=== PATIENT | female | born 1960 | race Caucasian/White ===

== ENCOUNTER 2024-06-26 14:28 | Inpatient (IN) | payer BC, SELFPAY ==
[2024-06-26] VITALS (9 sets, daily range): BP systolic 83–133; BP diastolic 54–78; PULSE 98–126; RESP 19–29; TEMP 35.6–37.2; O2SAT 87–98; BMI 24.7
--- NOTE | 2024-06-26 15:11 | XR_ITS ---
Examination: CT brain head without contrast. 2-D sagittal coronal reconstructions Date and time of exam:June 26, 2024 1701 hours INDICATIONS: Onset slurred speech generalized body weakness today CTDI: vol (mGy):45.8 DLP: (mGycm):960 Technique: Multiple CT axial sections of the brain have been obtained, 5 mm slice thickness. Contrast has not been administered. 2-D sagittal, coronal reconstructions have been obtained Low dose protocols were performed. One or more of the following dose reduction techniques were used; automated exposure control, adjustment of the mA and/or KV according to patient size, use of iterative reconstruction technique. Findings: No significant ventricular enlargement. Axial image 35 demonstrates 33 x 38 mm subtle low density area in the left cerebellar hemisphere Intra-axial or extra-axial hemorrhage density is not seen. No mass effect or midline shift Basal cisterns are not remarkable. Fourth ventricle is midline. Cranial vault intact. 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
--- NOTE | 2024-06-26 15:46 | EKG_ITS ---
[facility], [place] Test Date: 2024-06-26 Pat Name: ARGELIA RATLIFF Department: Room: - Gender: Female Clarifier: : [id number] Requested By: Oneal Kim Order Number: [id number] Reading MD: Oneal Kim Measurements Intervals [place] Rate: 116 P: 1 W[place]: 245 QRS: 30 QRSD: 160 T: 32 QT: 362 QTc: 504 Interpretive Statements ELECTRONIC VENTRICULAR PACEMAKER ABNORMAL RHYTHM ECG Compared to ECG 12/12/2021 12:19:58 Sinus rhythm no longer present Left-axis deviation no longer present Left bundle-branch block no longer present /store/[id number]
--- NOTE | 2024-06-26 15:47 | XR_ITS ---
Examination: AP chest single view TECHNIQUE: AP portable upright chest single view Exam date and time: June 26, 2024 1611 hours INDICATIONS: Sepsis protocol. FINDINGS: Early pneumonia left base Mild prominence left ventricle Cardiac leads satisfactory position Mild to moderate vascular congestion Right axillary surgical clips IMPRESSION: Early pneumonia left base
[2024-06-26 15:59] LABS: INR 1.7 (0.9-1.3); Partial Thromboplastin Time 35.5 Seconds (22.0-36.0); Prothrombin Time 17.6 Seconds (9.0-12.2)
--- NOTE | 2024-06-26 16:02 | PD.EDADULT ---
ED General RME/HPI General Chief complaint: Weakness Stated complaint: WEAKNESS, FLU LIKE SYMPTOMS Time Seen by Provider: 06/26/24 14:54 Arrival date/time: 06/26/24 14:28 RME / HPI RME / HPI narrative: Chief complaint: Slurred speech, N/V and diffuse bodyaches HPI: Patient is a 64-year-old female with past medical history of alcohol use disorder x 40 years, breast cancer s/p chemoradiation in 2003, HFrEF 20% s/p P[employer] in 2021, primary hypertension, recurrent ground-level falls due to loss of balance/peripheral neuropathy, and hypothyroidism, who was brought in by ambulance to the ER. Patient is a poor historian. Per present at bedside, patient symptoms started 4 days ago, when she started vomiting abruptly, he denies any blood or mucus in the vomitus, describes it as partially chewed yellowish discharge mainly food and liquids. Since Sunday patient has been unable to tolerate any diet, and has had multiple episodes of vomiting, and rest she is not complaining of nausea. Has been denies any subjective fevers at home or chills, however states that patient is a frequent drinker and often passes out and has ground-level falls after drinking. Patient has been consuming alcohol for over 40 years, mainly rum, she has had a colonoscopy in the past, but never had upper GI workup. She denies any blood or mucus in the stools or vomit. Patient has only been able to partially consume liquids over the last 72 hours. As per her she also started experiencing slurred speech 24 hours ago, and is now having difficulty finding words expressing what she wants to say. She has never had the symptoms in the past, has no history of stroke, and did not have any hospitalization since 2021 since a P[employer] INSTRUCTOR-D placement. Patient last drink was on Sunday, she has been trying to quit, however has been gave 2 shots of rum because the was worried she was going through withdrawal. However that did not help with the nausea or vomiting or the bodyaches. Medication list: -Escitalopram -Alprazolam -Lamotrigine -Entresto -Metoprolol XL -Levothyroxine -Daily vitamins Past surgical history: Breast cancer - chemoradiation, ?Lumpectomy in 2003 HFrEF - [employer] IN[employer]CTOR-D placement in 2021 Allergies: Sulfa drugs?angioedema Erythromycin?hives Social history: Marital?Status:? Tobacco?Use:?Denies ETOH?Use:?Chronic alcohol use x 40 years, active user, last drink was on Sunday 2 shots of from Drug?Note:?Denies Social?History?Note:?Lives?at home with? and mother Family history: Denies any cancers, sudden cardiac deaths or strokes in family. Related Data Home Medications ?Medication ?Instructions ?Recorded ?Confirmed Bupropion Hcl (Bupropion Hcl Xl) 300 mg PO QDAY ##90 10/14/16 12/13/21 alprazolam 0.5 mg tablet 1 mg PO QDAY PRN ANXIETY ##135 10/14/16 12/13/21 cholecalciferol (vitamin D3) 50 4,000 unit PO QDAY #0 caps 10/14/16 12/13/21 mcg (2,000 unit) capsule (Vitamin D3) lamotrigine 100 mg tablet 100 mg PO BID ##180 10/14/16 12/13/21 levothyroxine 50 mcg tablet 50 mcg PO QDAY ##90 10/14/16 12/13/21 (Synthroid) metoprolol succinate 100 mg 100 mg PO QDAY 10/19/21 12/13/21 capsule sprinkle, ext. release 24 hr multivitamin 1 tab PO DAILY 10/19/21 12/13/21 sacubitril 24 mg-valsartan 26 mg 1 tab PO BID 10/19/21 12/13/21 tablet (Entresto) Previous Rx's ?Medication ?Instructions ?Recorded Acetaminophen ER * (TYLENOL ER *) 650 mg PO Q8HR PRN PAIN ##30 01/13/17 Allergies Allergy/AdvReac Type Severity Reaction Status Date / Time Sulfa (Sulfonamide Allergy Severe THROAT Verified 12/13/21 12:29 Antibiotics) SWELLS,ANAPHYLAXIS erythromycin base Allergy Mild rash Verified 12/13/21 12:29 Review of Systems Review of Systems Narrative Review of Systems: GENERAL: Denies fevers/chills or diaphoresis. Generalized body aches HEENT: Denies headache or visual/hearing changes. Denies nasal discharge. NEURO: unusual weakness, slurred speech CARDIO: Denies chest pain or palpitations. PULM: Denies SOB, coughing, or wheezing. GI: Denies abdominal pain, N/V x multiple episodes, denies C/D. Reports having BMs URO: mild burning/itching/hesitancy in passing urine ACRYLIC FABRICATOR: Denies menstrual changes, hot flashes. MSK/EXT/SKIN: Denies joint/skeletal/muscle pain, issues/changes in upper or lower extremities, itchiness, or superficial pain. PSYCH: Cooperative, pleasant mood & affect. The rest of the review of systems is otherwise negative. ED Exam Narrative Physical exam: Constitutional Alert, oriented x2 . Notable scleral icterus HEENT Vision grossly intact. Patent nares. Trachea midline. On 5L oxygen via NC Respiratory Chest normal on inspection and diffuse soft crackles on auscultation. Cardiovascular S1 and S2 audible, RRR. No murmurs or carotid bruit. No gross JVD. Abdominal Soft and non tender to palpation in all quadrants. BS + Genitourinary No bladder tenderness, no flank pain. Normal to palpation. Musculoskeletal Extremities tone within normal limits. No LE edema. Neurological CN II - XII grossly intact. Extremity motor and sensation grossly intact. Skin Warm, dry and intact. Jaundice Psychiatric Patient has a good affect, cooperative. Course Course Course Narrative: Ordered Head CT, CT abdomen/pelvis and CT Chest Quality Measures none Orders Category Date Time Status Bedside Blood Glucose NOW Care 06/26/24 15:47 Completed Bedside COVID-19 Antigen Test NOW Care 06/26/24 21:[address] Screening NOW Care 06/26/24 15:55 Completed EKG (ED ONLY) *Do not use* NOW Care 06/26/24 15:48 Completed NPO NOW Care 06/26/24 17:32 Completed Consult to Gastroenterology Stat Cons 06/26/24 17:31 Ordered Diet NPO Except Supplements Diet 06/26/24 17:32 Completed CA echo doppler complete Stat Exams 06/26/24 21:[address] abdomen pelvis wo con Stat Exams 06/26/24 16:[address] chest wo con Stat Exams 06/26/24 16:[address] head/brain wo con Stat Exams 06/26/24 15:11 Completed EKG (ED Only) Stat Exams 06/26/24 15:46 Draft US abdomen Stat Exams 06/26/24 20:43 Completed XR chest 1V SEPSIS PROTOCOL Stat Exams 06/26/24 15:47 Completed AXEL IFA Screen w/refl, IFA* Stat Lab 06/26/24 23:27 Received Acetaminophen Stat Lab 06/26/24 21:16 Completed [id number]* Stat Lab 06/26/24 23:27 Received Ammonia Stat Lab 06/26/24 18:42 Completed Bilirubin,Direct Routine Lab 06/26/24 23:27 Completed Blood Culture (Lab) Stat Lab 06/26/24 15:50 Results CBC Stat Lab 06/26/24 16:00 Completed CMP [Comprehensive Metabolic Panel] Stat Lab 06/26/24 15:24 Completed Ceruloplasmin* Stat Lab 06/26/24 23:27 Received Ferritin Stat Lab 06/26/24 21:16 Completed HIV (1&2) Antibody Rapid Stat Lab 06/26/24 21:16 Completed Hepatitis A Antibody IgM Stat Lab 06/26/24 21:16 Completed Hepatitis A Antibody, Total* Stat Lab 06/26/24 23:27 Received Hepatitis Acute Panel Stat Lab 06/26/24 21:16 Completed Hepatitis B Core Antibody IgM Stat Lab 06/26/24 21:16 Completed Hepatitis B Surface Ab Stat Lab 06/26/24 21:16 Completed Hepatitis B Surface Antigen Stat Lab 06/26/24 21:16 Completed Hepatitis C Antibody Stat Lab 06/26/24 21:16 Completed Iron Panel Stat Lab 06/26/24 21:16 Completed LDH (Lactate Dehydrogenase) Routine Lab 06/26/24 23:27 Completed Lactate (Lactic Acid) Stat Lab 06/26/24 16:00 Completed Lactic Acid, 3 HR Stat Lab 06/26/24 19:40 Completed Lipase Stat Lab 06/26/24 16:00 Completed Magnesium Stat Lab 06/26/24 16:00 Completed PTT [Partial Thromboplastin Time] Stat Lab 06/26/24 15:24 [address] Path Review Blood Smear Stat Lab 06/26/24 16:00 Completed Procalcitonin Stat Lab 06/26/24 16:00 Completed Prothrombin Time with INR Stat Lab 06/26/24 15:24 Completed Renal Function Panel Stat Lab 06/26/24 18:42 Completed Sm Antibody* Stat Lab 06/26/24 23:27 Received Sodium Q4H Lab 06/26/24 23:27 Completed Sodium Q4H Lab 06/27/24 15:00 Ordered Thyroid Stimulating Hormone Stat Lab 06/26/24 16:00 Completed Troponin I Stat Lab 06/26/24 18:42 Completed Folic Acid Inj Med 06/26/24 16:50 Discontinued 1 mg IVP X1 ONE KCL 10% Liq UDC 15 ML Med 06/26/24 16:47 Discontinued 40 meq PO X1 ONE Lactulose Syrup [Enulose Syrup] Med 06/26/24 22:00 Discontinued 20 gm PO TID Magnesium Sulfate 1 gm Ivpb [Magnesium Sulfate Ivpb] Med 06/26/24 19:19 Discontinued 1 gm in 100 ml IV X1 MethylPREDNISolone. [SoluMEDROL Inj] Med 06/26/24 21:30 Discontinued 40 mg IVP Q12HR Ondansetron Inj [Zofran Inj] Med 06/26/24 16:47 Discontinued 4 mg IV X1 ONE Pharmacy Renal Dose Adjustment Med 06/26/24 21:14 Discontinued 1 each XX PRN PRN Piper/Tazo 3.375 gm [Zosyn] 50 ml Med 06/27/24 09:00 Discontinued IV Q12HR Piper/Tazo Inj [Zosyn Inj] 4.5 gm Med 06/26/24 21:45 Discontinued Sodium Chloride 0.9% [Ns] 100 ml IV X1 Sodium Chloride 0.9% 1000 ml [Ns] 1,000 ml Med 06/26/24 16:10 Discontinued IV 999 mls/hr Sodium Chloride 0.9% 1000 ml [Ns] 1,000 ml Med 06/26/24 18:00 Discontinued IV 999 mls/hr Sodium Chloride 0.9% 500 ml [Ns] 500 ml Med 06/26/24 16:33 Discontinued IV 999 mls/hr Thiamine Inj [Vitamin B-1 Inj] 250 mg Med 06/26/24 16:51 Discontinued Sodium Chloride 0.9% [Ns] 100 ml IV X1 Vital Signs Vital signs: Vital Signs Temperature 98.9 F 06/26/24 16:28 Pulse Rate 98 06/26/24 16:28 Respiratory Rate 19 06/26/24 16:28 Blood Pressure 133/78 H 06/26/24 16:28 Pulse Oximetry (%) 98 06/26/24 16:28 [facility] Patient data External records reviewed:: [facility] previous records Clinical information provided by:: patient and spouse Social determinants that could affect healthcare access:: alcohol use Patient has the following chronic illnesses:: alcohol use disorder x 40 years, breast cancer s/p chemoradiation in 2003, HFrEF 20% s/p P[employer] IN[employer]-D in 2021, primary hypertension, recurrent ground-level falls due to loss of balance/peripheral neuropathy, and hypothyroidism How is presenting disease/condition affected by chronic disease/condition?: exacerbated by Evaluation data The following diagnostics were reviewed and interpreted by me:: lab results, radiology exam(s) and EKG tracing(s) Lab and/or radiology exams considered but not ordered:: MRI Interpretation Summary: SWATI, heaptic encephalopathy, hepatorenal syndrome, ARF and AGMA in the setting of chronic alcohol use disorder Medications Medications considered but not ordered:: Dilaudid Medication administrations:: Medication Administration History Discontinued Medications Acetaminophen (Acetaminophen 325 Mg Tablet) 650 mg PO Q6H PRN PRN Reason: Fever >101.5 Stop: 07/27/24 03:53 Albuterol/Ipratropium (Albuterol/Ipratropium (Duoneb) Rt Denisa 3 Ml Nebu) 3 ml INH Q6HRRT PRN PRN Reason: sob or wheeze Stop: 07/27/24 00:59 Artificial Tears (Artificial Tears 225 Drop/15 Ml Btl) 1 drop BOTH EYES Q4HR PRN PRN Reason: Dry eyes Stop: 07/27/24 03:55 Dextrose (Dextrose 50%-Water Inj 50 Ml Syringe) Confirm Administered Dose 50 ml IV .STK-MED ONE Stop: 06/27/24 02:39 Last Admin: 06/27/24 03:54 Dose: Not Given Documented By: RANDA Non-Admin Reason: Duplicate Medication on eMAR Dextrose (Dextrose 50%-Water Inj 50 Ml Syringe) 50 ml IV X1 ONE Stop: 06/27/24 02:39 Last Admin: 06/27/24 02:38 Dose: 50 ml Documented By: RANDA Etomidate (Etomidate Inj 2 Mg/Ml Vial 10 Ml) Confirm Administered Dose 20 mg .ROUTE .STK-MED ONE Stop: 06/27/24 00:24 Last Admin: 06/27/24 01:42 Dose: Not Given Documented By: NOAH Non-Admin Reason: Override Medication Etomidate (Etomidate Inj 2 Mg/Ml Vial 10 Ml) 20 mg IVP X1 ONE Stop: 06/27/24 00:34 Last Admin: 06/27/24 01:39 Dose: Not Given Documented By: SF Non-Admin Reason: Cancelled by Provider Folic Acid (Folic Acid Inj 1 Mg/0.2 Ml) 1 mg IVP X1 ONE Stop: 06/26/24 16:51 Last Admin: 06/26/24 18:00 Dose: 1 mg Documented By: JARON Sodium Chloride (Ns) 1,000 mls @ 999 mls/hr IV .Q1H1M ONE Stop: 06/26/24 17:10 Last Infusion: 06/26/24 18:08 Dose: Infused Documented By: Admin: 06/26/24 16:37 Dose: 999 mls/hr Documented By: JARON Sodium Chloride (Ns) 500 mls @ 999 mls/hr IV .Q31M ONE Stop: 06/26/24 17:03 Last Infusion: 06/26/24 18:08 Dose: Infused Documented By: Admin: 06/26/24 16:37 Dose: 999 mls/hr Documented By: JARON Thiamine HCl 250 mg/ Sodium (Chloride) 102.5 mls @ 205 mls/hr IV X1 ONE Stop: 06/26/24 17:20 Last Infusion: 06/26/24 18:43 Dose: Infused Documented By: Admin: 06/26/24 18:00 Dose: 205 mls/hr Documented By: JARON Sodium Chloride (Ns) 1,000 mls @ 999 mls/hr IV .Q1H1M ONE Stop: 06/26/24 19:00 Last Infusion: 06/26/24 21:57 Dose: Infused Documented By: Admin: 06/26/24 18:01 Dose: 999 mls/hr Documented By: JARON Magnesium Sulfate/Dextrose (Magnesium Sulfate Ivpb) 1 gm in 100 mls @ 100 mls/hr IV X1 ONE Stop: 06/26/24 20:18 Last Infusion: 06/26/24 21:56 Dose: Infused Documented By: Admin: 06/26/24 19:41 Dose: 100 mls/hr Documented By: NOAH Piperacillin/Tazobactam/Dextrose (Zosyn) 50 mls @ 12.5 mls/hr IV Q12HR EMMA Stop: 07/04/24 08:59 Piperacillin Sod/Tazobactam (Sod 4.5 gm/ Sodium Chloride) 100 mls @ 200 mls/hr IV X1 ONE Stop: 06/26/24 22:14 Last Infusion: 06/26/24 23:44 Dose: Infused Documented By: Admin: 06/26/24 22:12 Dose: 200 mls/hr Documented By: PRATEEK Octreotide Acetate 1,000 mcg/ (Sodium Chloride) 102 mls @ 5.1 mls/hr IV .Q20H EMMA; Protocol Stop: 07/02/24 20:44 Albumin Human (Albuminar-25 Ivpb) 25 gm in 100 mls @ 100 mls/hr IV QDAY EMMA Stop: 06/30/24 00:14 Last Admin: 06/27/24 00:30 Dose: 100 mls/hr Documented By: NOAH Albumin Human (Albuminar-25 Ivpb) Confirm Administered Dose 25 gm in 100 mls @ ud IV .STK-MED ONE Stop: 06/27/24 00:25 Last Admin: 06/27/24 01:41 Dose: Not Given Documented By: NOAH Non-Admin Reason: Override Medication Octreotide Acetate 1,000 mcg/ (Sodium Chloride) 102 mls @ 5.1 mls/hr IV .Q20H EMMA; Protocol Stop: 06/27/24 20:44 Last Admin: 06/27/24 04:04 Dose: Not Given Documented By: NORBERT Non-Admin Reason: Discontinued Epinephrine/Sodium Chloride (Adrenalin/Ns 4 Mg Ivpb) Confirm Administered Dose 4 mg in 250 mls @ ud IV .STK-MED ONE Stop: 06/27/24 00:47 Last Admin: 06/27/24 01:41 Dose: Not Given Documented By: SF Non-Admin Reason: Override Medication Sodium Chloride (Ns) 1,000 mls @ 999 mls/hr IV .Q1H1M ONE Stop: 06/27/24 02:04 Last Admin: 06/27/24 01:41 Dose: 999 mls/hr Documented By: NOAH Epinephrine/Sodium Chloride (Adrenalin/Ns 4 Mg Ivpb) 4 mg in 250 mls @ 15 mls/hr IV .[id number] PRN; Protocol PRN Reason: per protocol Stop: 07/27/24 01:41 Last Titration: 06/27/24 04:00 Dose: Infused Documented By: Titration: 06/27/24 03:25 Dose: 0.06 mcg/kg/min, 18 mls/hr Documented By: Titration: 06/27/24 03:20 Dose: 0.08 mcg/kg/min, 24 mls/hr Documented By: Titration: 06/27/24 03:14 Dose: 0.1 mcg/kg/min, 30 mls/hr Documented By: Titration: 06/27/24 03:00 Dose: 0.12 mcg/kg/min, 36 mls/hr Documented By: Titration: 06/27/24 02:38 Dose: 0.12 mcg/kg/min, 36 mls/hr Documented By: Titration: 06/27/24 02:00 Dose: 0.1 mcg/kg/min, 30 mls/hr Documented By: Titration: 06/27/24 01:25 Dose: 0.1 mcg/kg/min, 30 mls/hr Documented By: Titration: 06/27/24 01:00 Dose: 0.05 mcg/kg/min, 15 mls/hr Documented By: Admin: 06/27/24 00:53 Dose: 0.05 mcg/kg/min, 15 mls/hr Documented By: CMN Propofol (Diprivan Ivpb) 1,000 mg in 100 mls @ 2.4 mls/hr IV .Q24H PRN; Protocol PRN Reason: PER PROTOCOL Stop: 07/27/24 02:54 Fentanyl Citrate (Sublimaze Inj 2,500 Mcg/250 Ml Bag) 2,500 mcg in 250 mls @ 2.5 mls/hr IV .Q24H PRN; Protocol PRN Reason: PER PROTOCOL Stop: 07/02/24 02:54 Norepinephrine/Dextrose (Levophed In D5w 8mg/250ml) 8 mg in 250 mls @ 7.5 mls/hr IV .Q24H PRN; Protocol PRN Reason: PER PROTOCOL Stop: 07/27/24 03:07 Last Titration: 06/27/24 04:00 Dose: 0 mcg/kg/min, 0 mls/hr Documented By: Titration: 06/27/24 03:50 Dose: 1 mcg/kg/min, 150 mls/hr Documented By: Titration: 06/27/24 03:45 Dose: 0.5 mcg/kg/min, 75 mls/hr Documented By: Titration: 06/27/24 03:40 Dose: 0.1 mcg/kg/min, 15 mls/hr Documented By: Titration: 06/27/24 03:35 Dose: 0.07 mcg/kg/min, 10.5 mls/hr Documented By: Admin: 06/27/24 03:30 Dose: 0.05 mcg/kg/min, 7.5 mls/hr Documented By: RANDA Norepinephrine/Dextrose (Levophed In D5w 8mg/250ml) Confirm Administered Dose 8 mg in 250 mls @ ud IV .STK-MED ONE Stop: 06/27/24 03:04 Last Admin: 06/27/24 03:17 Dose: Not Given Documented By: CMN Non-Admin Reason: Duplicate Medication on eMAR Sodium Bicarbonate 88.23 meq/ (Dextrose) 588.23 mls @ 100 mls/hr IV .Q5H53M [facility] Stop: 07/27/24 03:20 Last Admin: 06/27/24 04:06 Dose: Not Given Documented By: AD Non-Admin Reason: Discontinued Amiodarone HCl 300 mg/ (Dextrose) 106 mls @ 600 mls/hr IV X1 ONE Stop: 06/27/24 03:42 Last Admin: 06/27/24 04:10 Dose: Not Given Documented By: CMN Non-Admin Reason: Discontinued Magnesium Sulfate (Magnesium Sulfate Ivpb) Confirm Administered Dose 50 mls @ ud IV .STK-MED ONE Stop: 06/27/24 03:27 Last Admin: 06/27/24 04:01 Dose: Not Given Documented By: CMN Non-Admin Reason: Duplicate Medication on eMAR Amiodarone HCl/Dextrose (Nexterone Ivpb) Confirm Administered Dose 150 mg in 100 mls @ ud IV .STK-MED ONE Stop: 06/27/24 03:27 Last Admin: 06/27/24 04:01 Dose: Not Given Documented By: CMN Non-Admin Reason: Duplicate Medication on eMAR Magnesium Sulfate (Magnesium Sulfate Ivpb) 2 gm in 50 mls @ 25 mls/hr IV X1 ONE Stop: 06/27/24 05:34 Last Admin: 06/27/24 03:30 Dose: 25 mls/hr Documented By: RANDA Vancomycin/Sodium Chloride (Vancomycin/Ns 1 Gm Ivpb) 200 mls @ 120 mls/hr IV Q100M [facility] Stop: 06/27/24 07:04 Last Admin: 06/27/24 04:07 Dose: Not Given Documented By: NORBERT Non-Admin Reason: Discontinued Amiodarone HCl/Dextrose (Nexterone Ivpb) 150 mg in 100 mls @ 600 mls/hr IV .Q10M ONE Stop: 06/27/24 03:19 Last Admin: 06/27/24 03:30 Dose: 600 mls/hr Documented By: RANDA Lactulose (Lactulose Syrup 20 Gm/30 Ml Udc) 20 gm PO TID EMMA; Protocol Stop: 07/26/24 21:59 Last Admin: 06/26/24 22:16 Dose: 20 gm Documented By: PRATEEK Methylprednisolone Sodium Succinate (Methylprednisolone Sod Succ 40 Mg Vial) 40 mg IVP Q12HR EMMA Stop: 07/03/24 21:29 Last Admin: 06/26/24 22:12 Dose: 40 mg Documented By: PRATEEK Morphine Sulfate (Morphine Sulf Inj 10 Mg/Ml Vial) 4 mg IVP X1 ONE Stop: 06/27/24 03:55 Last Admin: 06/27/24 03:58 Dose: 4 mg Documented By: RANDA Morphine Sulfate (Morphine Sulf Inj 10 Mg/Ml Vial) Confirm Administered Dose 10 mg .ROUTE .STK-MED ONE Stop: 06/27/24 03:48 Last Admin: 06/27/24 04:04 Dose: Not Given Documented By: NORBERT Non-Admin Reason: Duplicate Medication on eMAR Octreotide Acetate (Octreotide Acet Inj 50 Mcg/Ml Vial) 50 mcg IV X1 ONE Stop: 06/27/24 00:15 Last Admin: 06/27/24 04:05 Dose: Not Given Documented By: NORBERT Non-Admin Reason: Not In Room Ondansetron HCl (Ondansetron Inj 2 Mg/Ml Inj 2 Ml) 4 mg IV X1 ONE; Protocol Stop: 06/26/24 16:48 Last Admin: 06/26/24 18:01 Dose: 4 mg Documented By: JARON Ondansetron HCl (Ondansetron Inj 2 Mg/Ml Inj 2 Ml) 4 mg IV Q6H PRN; Protocol PRN Reason: NAUSEA OR VOMITING Stop: 07/26/24 22:30 Pantoprazole Sodium (Pantoprazole Inj 40 Mg Vial) 80 mg IV X1 ONE Stop: 06/27/24 00:10 Last Admin: 06/27/24 04:05 Dose: Not Given Documented By: AD Non-Admin Reason: Not In Room Pharmacy Consult (Pharmacy Renal Dose Adjustment 1 Ea) 1 each XX PRN PRN PRN Reason: CONSULT Stop: 07/26/24 21:13 Pharmacy Consult (Pharmacy Renal Dose Adjustment 1 Ea) 1 each XX QDAY EMMA Stop: 07/27/24 08:59 Pharmacy Consult (Vancomycin Pharmacy To Dose 1 Each Each) 1 each IV QDAY EMMA Stop: 07/27/24 03:39 Last Admin: 06/27/24 04:07 Dose: Not Given Documented By: NORBERT Non-Admin Reason: Discontinued Potassium Chloride (Potassium Chloride 10% 20 Meq/15 Ml Udc) 40 meq PO X1 ONE Stop: 06/26/24 16:48 Last Admin: 06/26/24 18:01 Dose: 40 meq Documented By: JARON Rocuronium [place] (Rocuronium Inj 10 Mg/Ml Vial 10 Ml) Confirm Administered Dose 100 mg .ROUTE .STK-MED ONE Stop: 06/27/24 00:24 Last Admin: 06/27/24 01:41 Dose: Not Given Documented By: NOAH Non-Admin Reason: Override Medication Rocuronium [place] (Rocuronium Inj 10 Mg/Ml Vial 10 Ml) 80 mg IVP X1 ONE Stop: 06/27/24 00:33 Last Admin: 06/27/24 00:41 Dose: 80 mg Documented By: NOAH Co-signed By: PRATEEK Scopolamine (Scopolamine 1 Mg Tdsy) 1 mg TOP Q3D [facility] Stop: 07/27/24 03:59 Last Admin: 06/27/24 04:43 Dose: Not Given Documented By: RANDA Non-Admin Reason: Change of Condition Sodium Bicarbonate (Sodium Bicarb Inj 8.4% Syr 50 Ml Syringe) 50 ml IV X1 ONE Stop: 06/27/24 03:21 Last Admin: 06/27/24 03:24 Dose: 50 ml Documented By: RANDA Sodium Bicarbonate (Sodium Bicarb Inj 8.4% Syr 50 Ml Syringe) 50 ml IV X1 ONE Stop: 06/27/24 03:22 Last Admin: 06/27/24 03:24 Dose: 50 ml Documented By: RANDA Sodium Bicarbonate (Sodium Bicarb Inj 8.4% Syr 50 Ml Syringe) 50 ml IV X1 ONE Stop: 06/27/24 03:23 Last Admin: 06/27/24 03:24 Dose: 50 ml Documented By: CMN Sodium Bicarbonate (Sodium Bicarb Inj 8.4% Syr 50 Ml Syringe) Confirm Administered Dose 150 ml IV .STK-MED ONE Stop: 06/27/24 03:15 Last Admin: 06/27/24 04:00 Dose: Not Given Documented By: RANDA Non-Admin Reason: Duplicate Medication on eMAR For lactic acidosis and Consultations Consultation(s) initiated? (list below): Yes Consultation #1 (Physician, Specialty, Details): Dr. Jo, ICU, Refused admission. See Resident note. This was reported to me at 1805 at signout. I was not involved in discussion with Dr. Jo. Consultation #2 (Physician, Specialty, Details): Dr. Ag evaluated the patient here in the emergency department please see his consultation note. This was signed out to me at 1805 I was not involved in the discussion with Dr. Ag. Consultation #3 (Physician, Specialty, Details): Dr. Ryan, evaluated the patient here in the emergency department and agrees to admit the patient after the ultrasound is done and read by the radiologist as long as the patient does not have common bile duct stone I believe he will feel comfortable excepting the patient here. Time: 22:18 Diagnosis Differential Diagnosis ED Complaint MDM: Sepsis, pneumonia, obstruction, septic shock, Most likely diagnosis given after review of the tests above:: Sepsis, pneumonia, elevated liver function test Admission Indicated Admission indicated?: indicated Explain why admission is indicated or not indicated:: Patient admitted for sepsis, dehydration, possible hepatitis Admission Request Was there a request for admission?: Yes Admission Attestation Admission request attestation: Discussed case with [] from Hospitalist service regarding admission. Discussed patients ED course, exam findings, labs, and radiology results. The Hospitalist [agrees,declines] to accept the patient for admission. Disposition Plan Disposition Plan: other (specify) Medical Decision Making MDM Narrative MDM Narrative: [facility] Differential Diagnosis Differential Diagnosis: Sepsis, pneumonia, obstruction, septic shock, Lab Data 06/27/24 03:41 06/27/24 03:41 Labs: Lab Results 06/26/24 06/26/24 06/26/24 Range/Units 15:24 16:00 18:42 WBC 9.0 (3.6-11.0) Thou/mm3 RBC 3.87 L (4.00-5.20) Miln/mm3 Hgb 13.5 (12.0-16.0) g/dL Hct 37.2 (36.0-46.0) % MCV 96 (80-100) fL MCH 34.9 (25.0-35.0) pg MCHC 36.3 (31.0-37.0) g/dl RDW Std Deviation 44.1 (36.4-46.3) fL Plt Count 41 L (140-440) Thou/mm3 Neut % (Auto) 86 H (37-80) % Lymph % (Auto) 3 L (10-50) % [place] % (Auto) 6 (0-12) % Eos % (Auto) 0 (0-10) % Baso % (Auto) 0 (0-2.5) % Neut # (Auto) 7.8 H (1.8-7.7) Thou/mm3 Lymph # (Auto) 0.3 L (1.0-4.8) Thou/mm3 [place] # (Auto) 0.6 (0.0-0.8) Thou/mm3 Eos # (Auto) 0.0 (0.0-0.5) Thou/mm3 Baso # (Auto) 0.0 (0.0-0.2) Thou/mm3 Immature Gran # (Auto) 0.36 H (0.00-0.00) Thou/mm3 Absolute Nucleated RBC 0.00 (0.00-0.00) Thou/mm3 Immature Gran % 4 H (0-0) % Nucleated RBC % 0 (0) /100 WBC Smear Path Review Sent to Pathologist PT 17.6 H (9.0-12.2) Seconds INR 1.7 H (0.9-1.3) APTT 35.5 (22.0-36.0) Seconds Sodium 118 L* 123 L (136-145) mMol/L Potassium 3.2 L 3.5 (3.4-5.1) mMol/L Chloride 81 L 87 L (98-107) mMol/L Carbon Dioxide 18.4 L 19.2 L (20.0-31.0) mMol/L Anion Gap 19 H 17 H (7-16) BUN 64 H 66 H (9-23) mg/dL Creatinine 3.0 H 2.7 H (0.6-1.3) mg/dL Estim Creat Clear Calc 16.3 L 18.1 L (>60) mL/min eGFR 17 L 19 L (60 - ) See Note BUN/Creatinine Ratio 21 H 24 H (12-20) Ratio Glucose 132 H 118 H (74-106) mg/dL Calculated Osmolality 258 L 267 L (275-295) Lactic Acid 7.7 H* (0.4-2.0) mMol/L Calcium 8.9 7.5 L (8.3-10.6) mg/dL Corrected Calcium 9.1 8.4 L (8.5-10.1) mg/dL Phosphorus 2.9 (2.4-5.1) mg/dL Magnesium 1.1 L (1.6-2.6) mg/dL Iron (50-170) mcg/dL TIBC (250-425) mcg/dL Iron Saturation (20-55) % Unsat Iron Binding (225-295) Ferritin (7.3-270.7) ng/mL Total Bilirubin 6.7 H (0.3-1.2) mg/dL AST 4641 H* (0-34) U/L ALT 2556 H* (10-49) U/L Alkaline Phosphatase 129 H (46-116) U/L Ammonia 64 H (11-32) uMol/L Troponin I 0.042 (0.0-0.045) ng/mL Total Protein 6.8 (5.7-8.2) gm/dL Albumin 3.7 2.9 L D (3.4-4.8) gm/dL Globulin 3.1 (2.3-3.5) gm/dL Albumin/Globulin Ratio 1.2 (1.2-2.2) Lipase 44 (12-53) U/L Procalcitonin 91.95 H (0.0-0.49) ng/ml TSH 1.27 (0.55-4.78) uIU/mL Acetaminophen (10.0-20.0) mcg/mL Hepatitis A IgM Ab (Non React) Hep Bs Antigen (Non React) Hep Bs Antibody (Immune) Hep B Core IgM Ab (Non React) Hepatitis C Antibody (Non React) HIV 1&2 Antibody Rapid Misc Test Result Platelets confirmed 01/23/25 01/23/25 01/23/25 Range/Units 19:40 21:16 21:16 WBC (3.6-11.0) Thou/mm3 RBC (4.00-5.20) Miln/mm3 Hgb (12.0-16.0) g/dL Hct (36.0-46.0) % MCV (80-100) fL MCH (25.0-35.0) pg MCHC (31.0-37.0) g/dl RDW Std Deviation (36.4-46.3) fL Plt Count (140-440) Thou/mm3 Neut % (Auto) (37-80) % Lymph % (Auto) (10-50) % [place] % (Auto) (0-12) % Eos % (Auto) (0-10) % Baso % (Auto) (0-2.5) % Neut # (Auto) (1.8-7.7) Thou/mm3 Lymph # (Auto) (1.0-4.8) Thou/mm3 [place] # (Auto) (0.0-0.8) Thou/mm3 Eos # (Auto) (0.0-0.5) Thou/mm3 Baso # (Auto) (0.0-0.2) Thou/mm3 Immature Gran # (Auto) (0.00-0.00) Thou/mm3 Absolute Nucleated RBC (0.00-0.00) Thou/mm3 Immature Gran % (0-0) % Nucleated RBC % (0) /100 WBC Smear Path Review PT (9.0-12.2) Seconds INR (0.9-1.3) APTT (22.0-36.0) Seconds Sodium (136-145) mMol/L Potassium (3.4-5.1) mMol/L Chloride (98-107) mMol/L Carbon Dioxide (20.0-31.0) mMol/L Anion Gap (7-16) BUN (9-23) mg/dL Creatinine (0.6-1.3) mg/dL Estim Creat Clear Calc (>60) mL/min eGFR (60 - ) See Note BUN/Creatinine Ratio (12-20) Ratio Glucose (74-106) mg/dL Calculated Osmolality (275-295) Lactic Acid 6.2 H* (0.4-2.0) mMol/L Calcium (8.3-10.6) mg/dL Corrected Calcium (8.5-10.1) mg/dL Phosphorus (2.4-5.1) mg/dL Magnesium (1.6-2.6) mg/dL Iron 114 (50-170) mcg/dL TIBC 203 L (250-425) mcg/dL Iron Saturation 56 H (20-55) % Unsat Iron Binding 89 L (225-295) Ferritin > 1650 H (7.3-270.7) ng/mL Total Bilirubin (0.3-1.2) mg/dL AST (0-34) U/L ALT (10-49) U/L Alkaline Phosphatase (46-116) U/L Ammonia (11-32) uMol/L Troponin I (0.0-0.045) ng/mL Total Protein (5.7-8.2) gm/dL Albumin (3.4-4.8) gm/dL Globulin (2.3-3.5) gm/dL Albumin/Globulin Ratio (1.2-2.2) Lipase (12-53) U/L Procalcitonin (0.0-0.49) ng/ml TSH (0.55-4.78) uIU/mL Acetaminophen 24.8 H (10.0-20.0) mcg/mL Hepatitis A IgM Ab Non Reactive Non Reactive (Non React) Hep Bs Antigen Non Reactive (Non React) Hep Bs Antibody (Immune) Hep B Core IgM Ab (Non React) Hepatitis C Antibody (Non React) HIV 1&2 Antibody Rapid Misc Test Result 06/26/24 06/26/24 06/26/24 Range/Units 21:16 21:16 21:16 WBC (3.6-11.0) Thou/mm3 RBC (4.00-5.20) Miln/mm3 Hgb (12.0-16.0) g/dL Hct (36.0-46.0) % MCV (80-100) fL MCH (25.0-35.0) pg MCHC (31.0-37.0) g/dl RDW Std Deviation (36.4-46.3) fL Plt Count (140-440) Thou/mm3 Neut % (Auto) (37-80) % Lymph % (Auto) (10-50) % [place] % (Auto) (0-12) % Eos % (Auto) (0-10) % Baso % (Auto) (0-2.5) % Neut # (Auto) (1.8-7.7) Thou/mm3 Lymph # (Auto) (1.0-4.8) Thou/mm3 [place] # (Auto) (0.0-0.8) Thou/mm3 Eos # (Auto) (0.0-0.5) Thou/mm3 Baso # (Auto) (0.0-0.2) Thou/mm3 Immature Gran # (Auto) (0.00-0.00) Thou/mm3 Absolute Nucleated RBC (0.00-0.00) Thou/mm3 Immature Gran % (0-0) % Nucleated RBC % (0) /100 WBC Smear Path Review PT (9.0-12.2) Seconds INR (0.9-1.3) APTT (22.0-36.0) Seconds Sodium (136-145) mMol/L Potassium (3.4-5.1) mMol/L Chloride (98-107) mMol/L Carbon Dioxide (20.0-31.0) mMol/L Anion Gap (7-16) BUN (9-23) mg/dL Creatinine (0.6-1.3) mg/dL Estim Creat Clear Calc (>60) mL/min eGFR (60 - ) See Note BUN/Creatinine Ratio (12-20) Ratio Glucose (74-106) mg/dL Calculated Osmolality (275-295) Lactic Acid (0.4-2.0) mMol/L Calcium (8.3-10.6) mg/dL Corrected Calcium (8.5-10.1) mg/dL Phosphorus (2.4-5.1) mg/dL Magnesium (1.6-2.6) mg/dL Iron (50-170) mcg/dL TIBC (250-425) mcg/dL Iron Saturation (20-55) % Unsat Iron Binding (225-295) Ferritin (7.3-270.7) ng/mL Total Bilirubin (0.3-1.2) mg/dL AST (0-34) U/L ALT (10-49) U/L Alkaline Phosphatase (46-116) U/L Ammonia (11-32) uMol/L Troponin I (0.0-0.045) ng/mL Total Protein (5.7-8.2) gm/dL Albumin (3.4-4.8) gm/dL Globulin (2.3-3.5) gm/dL Albumin/Globulin Ratio (1.2-2.2) Lipase (12-53) U/L Procalcitonin (0.0-0.49) ng/ml TSH (0.55-4.78) uIU/mL Acetaminophen (10.0-20.0) mcg/mL Hepatitis A IgM Ab (Non React) Hep Bs Antigen Non Reactive (Non React) Hep Bs Antibody NonReact(Not Immune) L (Immune) Hep B Core IgM Ab Non Reactive Non Reactive (Non React) Hepatitis C Antibody Non Reactive Non Reactive (Non React) HIV 1&2 Antibody Rapid Non-Reactive Misc Test Result Discharge Plan Plan Patient Disposition: Admit Acute Care w/in Hospital Patient condition on transfer: Stable Problem List Clinical Impression: Sepsis, Left lower lobe pneumonia, Acute hyponatremia, Hypomagnesemia, Kidney mass MD Attestation MD Attestation The patient was seen primarily by the PGY 2. I, the supervising physician, also encountered the patient (along with history taken from the ) and examined the patient and remained present during the entire ER visit. Patient on my encounter is overtly very ill-appearing, lethargic, with slurred speech, and very obvious jaundice/pallor. As a result I worked with the resident to initiate a comprehensive workup and including for hepatobiliary disease, sepsis, and altered mental status. I suspect a component of hepatorenal is going on with the patient. Patient was started on an immediate bolus of IV fluids with further workup in place. Laboratory testing results show profound abnormalities were literally everything is abnormal on her basic chemistries except her calcium. She has signs of shock hepatic failure with transaminases in the several thousands and a coagulopathy of an INR of 1.7. She has a profound metabolic abnormalities with acute kidney injury most significant for a critically low sodium at 118 (symptomatic/lethargy). We will discuss with the ICU for admission as she has individual critical values such as sodium 118 but also the overall picture is very complicated with multiorgan failure and likely will require close monitoring and frequent clinical reevaluations and diagnostic testing over the course of the night. Her condition is critical and guarded. We discussed this at close detail with the as well. I agree with the resident plan and documentation.
[2024-06-26 16:16] LABS: Alanine Aminotransferase 2556 U/L (10-49); Albumin, Serum 3.7 gm/dL (3.4-4.8); Albumin/Globulin Ratio 1.2 (1.2-2.2); Alkaline Phosphatase 129 U/L (46-116); Anion Gap 19 (7-16); Aspartate Amino Transferase 4641 U/L (0-34); BUN/Creatinine Ratio 21 Ratio (12-20); Bilirubin,Total 6.7 mg/dL (0.3-1.2); Blood Urea Nitrogen 64 mg/dL (9-23); Calcium 8.9 mg/dL (8.3-10.6); Calcium (Corrected) 9.1 mg/dL (8.5-10.1); Carbon Dioxide 18.4 mMol/L (20.0-31.0); Chloride 81 mMol/L (98-107); Estimated Creatinine Clearance 16.3 mL/min (>60); Globulin 3.1 gm/dL (2.3-3.5); Glucose 132 mg/dL (74-106); Osmolality,Calculated 258 (275-295); Potassium 3.2 mMol/L (3.4-5.1); Total Protein 6.8 gm/dL (5.7-8.2); eGFR 17 See Note
[2024-06-26 16:24] LABS: Sodium 118 mMol/L (136-145)
[2024-06-26 16:25] LABS: Lactate (Lactic Acid) 7.7 mMol/L (0.4-2.0)
--- NOTE | 2024-06-26 16:32 | XR_ITS ---
Examination: CT chest, without intravenous contrast. Sagittal and coronal 2-D reconstructions. Exam date and time: June 26, 2024 1903 hours INDICATIONS: Acute renal failure today, shortness of breath CTDI:vol (mGy) 9.36 DLP: (mGycm) 263 Technique: Multiple 3.0 mm axial sections of the chest to been obtained. Bone and lung density settings are obtained. Sagittal and coronal 2-D reconstructions have been obtained. Low dose protocols were performed. One or more of the following dose reduction techniques were used; automated exposure control, adjustment of the mA and/or KV according to patient size, use of iterative reconstruction technique. Findings: Fluid distended esophagus No thoracic aortic aneurysm dilatation Pulmonary artery segments are not enlarged Pericardial effusion posteriorly measuring up to 15 mm Significant left base pneumonia Minimal bilateral pleural disease Moderate osteopenia IMPRESSION: Fluid distended esophagus, clinical correlation advised Pericardial effusion measuring up to 15 mm Significant left base pneumonia
--- NOTE | 2024-06-26 16:32 | XR_ITS ---
Examination: CT abdomen and pelvis without contrast. Coronal 3-D reconstructions. Sagittal 2-D reconstructions. Date and time of exam:June 26, 2024 at 1703 hours INDICATIONS: Abdominal pain, acute renal failure today CTDI: vol (mGy): 9.12 DLP: (mGycm): 536 Technique: Axial images of the abdomen have been obtained, 3 mm slice thickness Intravenous contrast material has not been administered. Low dose protocols were performed. One or more of the following dose reduction techniques were used; automated exposure control, adjustment of the mA and/or KV according to patient size, use of iterative reconstruction technique. Findings: Significant left base pneumonia Minimal bilateral pleural disease Pericardial effusion measuring up to 12 mm Diffuse fatty infiltration throughout the liver Hyperdense contracted gallbladder No splenic or pancreatic mass Moderate bilateral renal parenchymal scar formation with perinephric stranding Suspicious for solid mass posterior right kidney, 29 mm Aorta normal size No bowel obstruction Normal appendix No diverticulitis Atrophic uterus with calcifications Urinary bladder intact No adnexal mass Advanced degenerative disc disease L2-L3, significant osteopenia IMPRESSION: Significant left base pneumonia Pericardial effusion measuring up to 12 mm Diffuse fatty liver Hyperdense gallbladder, recommend hepatobiliary sonography follow-up Moderate bilateral renal parenchymal scar formation Suspicious for solid mass posterior right kidney, 29 mm, recommend renal sonography follow-up Normal appendix No bowel obstruction
[2024-06-26 16:33] LABS: Basophils % (Auto) 0 % (0-2.5); Eosinophils % (Auto) 0 % (0-10); Hematocrit 37.2 % (36.0-46.0); Hemoglobin 13.5 g/dL (12.0-16.0); Immature Granulocytes % (Auto) 4 % (0-0); Immature Granulocytes Auto 0.36 Thou/mm3 (0.00-0.00); Lymphocytes # (Auto) 0.3 Thou/mm3 (1.0-4.8); Lymphocytes % (Auto) 3 % (10-50); Mean Corpuscular HGB Conc 36.3 g/dl (31.0-37.0); Mean Corpuscular Hemoglobin 34.9 pg (25.0-35.0); Mean Corpuscular Volume 96 fL (80-100); Monocytes # (Auto) 0.6 Thou/mm3 (0.0-0.8); Monocytes % (Auto) 6 % (0-12); Neutrophils # (Auto) 7.8 Thou/mm3 (1.8-7.7); Neutrophils % (Auto) 86 % (37-80); Nucleated Red Blood Cell % 0 /100 WBC (0); RDW Standard Deviation 44.1 fL (36.4-46.3); Red Blood Count 3.87 Miln/mm3 (4.00-5.20)
[2024-06-26 16:34] LABS: Platelet Count 41 Thou/mm3 (140-440)
[2024-06-26] MEDS: SODIUM CHLORIDE 0.9% 500 ML 500 ML 999 ML IV (16:37)
[2024-06-26] MEDS: SODIUM CHLORIDE 0.9% 1000 ML 1,000 ML 999 ML IV ×2 (16:37→18:01)
[2024-06-26 16:51] LABS: Slide Review Platelets confirmed
[2024-06-26 16:59] LABS: Lipase 44 U/L (12-53); Thyroid Stimulating Hormone 1.27 uIU/mL (0.55-4.78)
[2024-06-26 17:19] LABS: Procalcitonin 91.95 ng/ml (0.0-0.49)
[2024-06-26 17:27] LABS: Path Review Blood Smear Sent to Pathologist
[2024-06-26 17:37] LABS: Magnesium 1.1 mg/dL (1.6-2.6)
[2024-06-26] MEDS: THIAMINE INJ 250 MG in SODIUM CHLORIDE 0.9% 100 ML 205 MG IV (18:00)
[2024-06-26] MEDS: FOLIC ACID INJ 1 MG/0.2 ML IVP (18:00)
[2024-06-26] MEDS: POTASSIUM CHLORIDE 10% 20 MEQ/15 ML UDC 40 MEQ PO (18:01)
[2024-06-26] MEDS: ONDANSETRON INJ 2 MG/ML INJ 2 ML 4 MG IV (18:01)
[2024-06-26 19:21] LABS: Reflex Lactate? Y
[2024-06-26 19:23] LABS: Troponin I 0.042 ng/mL (0.0-0.045)
[2024-06-26 19:35] LABS: Ammonia 64 uMol/L (11-32)
--- NOTE | 2024-06-26 19:37 | EDNOTE_ITS ---
Emergency Room Addendum <Agnieszka Lisa - Last Filed: 06/26/24 21:52> Addendum Narrative: 1800: Care assumed from the previous shift emergency physician. Past medical, surgical, social and family history reviewed. Vitals and home medications reviewed. Previous providers consulted Dr. Jo or declined patient admission to ICU, Dr. Ag for consult, 1814: I will assume the care of the patient at this time, pending re-evaluation, and final disposition. Please refer to the emergency department record for history and examination from initial visit.? Plan at sign-out. 1 liter will be given then re-evaluation pending admission, ICU vs hospitalist services. Physical exam by me shows patient under min acute distress at this time. SBP 95 I, Karlene Hernandez, took signout from the resident Dr. Kim. I did a physical on the patient, reviewed the note, and agree with the reevaluation and continued workup to include giving 1 L of fluid and reconsulting ICU and/or the floor team for admission. 2032: Connor consulted, would like an ultrasound. RADIOLOGY Procedure(s): CT chest wo con Accession Number(s): [id number] cc: Duc Ballesteros MD; NO PRIMARY/FAMILY,PHYSICIAN; Oneal Kim MD~ Examination: CT chest, without intravenous contrast. Sagittal and coronal 2-D reconstructions. Exam date and time: June 26, 2024 1903 hours INDICATIONS: Acute renal failure today, shortness of breath CTDI:vol (mGy) 9.36 DLP: (mGycm) 263 Technique: Multiple 3.0 mm axial sections of the chest to been obtained. Bone and lung density settings are obtained. Sagittal and coronal 2-D reconstructions have been obtained. Low dose protocols were performed. One or more of the following dose reduction techniques were used; automated exposure control, adjustment of the mA and/or KV according to patient size, use of iterative reconstruction technique. Findings: Fluid distended esophagus No thoracic aortic aneurysm dilatation Pulmonary artery segments are not enlarged Pericardial effusion posteriorly measuring up to 15 mm Significant left base pneumonia Minimal bilateral pleural disease Moderate osteopenia IMPRESSION: Fluid distended esophagus, clinical correlation advised Pericardial effusion measuring up to 15 mm Significant left base pneumonia Dictated By: Duc Ballesteros MD Procedure(s): CT abdomen pelvis [facility] Accession Number(s): [id number] cc: Duc Ballesteros MD; NO PRIMARY/FAMILY,PHYSICIAN; Oneal Kim MD~ Examination: CT abdomen and pelvis without contrast. Coronal 3-D reconstructions. Sagittal 2-D reconstructions. Date and time of exam:June 26, 2024 at 1703 hours INDICATIONS: Abdominal pain, acute renal failure today CTDI: vol (mGy): 9.12 DLP: (mGycm): 536 Technique: Axial images of the abdomen have been obtained, 3 mm slice thickness Intravenous contrast material has not been administered. Low dose protocols were performed. One or more of the following dose reduction techniques were used; automated exposure control, adjustment of the mA and/or KV according to patient size, use of iterative reconstruction technique. Findings: Significant left base pneumonia Minimal bilateral pleural disease Pericardial effusion measuring up to 12 mm Diffuse fatty infiltration throughout the liver Hyperdense contracted gallbladder No splenic or pancreatic mass Moderate bilateral renal parenchymal scar formation with perinephric stranding Suspicious for solid mass posterior right kidney, 29 mm Aorta normal size No bowel obstruction Normal appendix No diverticulitis Atrophic uterus with calcifications Urinary bladder intact No adnexal mass Advanced degenerative disc disease L2-L3, significant osteopenia IMPRESSION: Significant left base pneumonia Pericardial effusion measuring up to 12 mm Diffuse fatty liver Hyperdense gallbladder, recommend hepatobiliary sonography follow-up Moderate bilateral renal parenchymal scar formation Suspicious for solid mass posterior right kidney, 29 mm, recommend renal sonography follow-up Normal appendix No bowel obstruction Dictated By: Duc Ballesteros MD Procedure(s): XR chest 1V SEPSIS PROTOCOL Accession Number(s): [id number] cc: Duc Ballesteros MD; NO PRIMARY/FAMILY,PHYSICIAN; Oneal Kim MD~ Examination: AP chest single view TECHNIQUE: AP portable upright chest single view Exam date and time: June 26, 2024 1611 hours INDICATIONS: Sepsis protocol. FINDINGS: Early pneumonia left base Mild prominence left ventricle Cardiac leads satisfactory position Mild to moderate vascular congestion Right axillary surgical clips IMPRESSION: Early pneumonia left base Dictated By: Duc Ballesteros MD Procedure(s): CT head/brain wo con Accession Number(s): [id number] cc: Duc Ballesteros MD; NO PRIMARY/FAMILY,PHYSICIAN; Oneal Kim MD~ Examination: CT brain head without contrast. 2-D sagittal coronal reconstructions Date and time of exam:June 26, 2024 1701 hours INDICATIONS: Onset slurred speech generalized body weakness today CTDI: vol (mGy):45.8 DLP: (mGycm):960 Technique: Multiple CT axial sections of the brain have been obtained, 5 mm slice thickness. Contrast has not been administered. 2-D sagittal, coronal reconstructions have been obtained Low dose protocols were performed. One or more of the following dose reduction techniques were used; automated exposure control, adjustment of the mA and/or KV according to patient size, use of iterative reconstruction technique. Findings: No significant ventricular enlargement. Axial image 35 demonstrates 33 x 38 mm subtle low density area in the left cerebellar hemisphere Intra-axial or extra-axial hemorrhage density is not seen. No mass effect or midline shift Basal cisterns are not remarkable. Fourth ventricle is midline. Cranial vault intact. 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 Dictated By: Duc Ballesteros MD <Karlene Hernandez MD - Last Filed: 06/26/24 22:23> Addendum Narrative: 1800: Care assumed from the previous shift, emergency physician. Past medical, surgical, social and family history reviewed. Vitals and home medications reviewed. Previous providers consulted Dr. Jo or declined patient admission to ICU, Dr. Ag for consult, 1814: I will assume the care of the patient at this time, pending re-evaluation, and final disposition. Please refer to the emergency department record for history and examination from initial visit. What I Plan at sign-out. 1 liter will be given then re-evaluation pending admission, ICU vs hospitalist services. Physical exam by me shows patient under min acute distress at this time. SBP 95 I, Karlene Hernandez MD took sign-out from previous providers. on shift Dr. Kim and Dr. Gaines. I did a physical on the patient, reviewed the note, and agree with the re-evaluation and continued workup to include giving 1 L of IVF and re-consulting ICU and/or the floor team for admission and repeat labs. 2032: Dr. Ryan consulted, requests an ultrasound. Patient given 1 L fluid. Improved creatinine down to 2.7 from 3.0. Lactate improved as well. Ultrasound is performed which does not show renal mass and no ascites. Suspect the patient has long history of alcohol use and/or alcohol ketosis and dehydration secondary to decreased p.o. intake. However with the elevated lactate discussed with admitting physician who agrees to start Zosyn. Other differential diagnosis includes acute cholecystitis, common bile duct stone, sepsis, acute hepatitis, SBP although patient does not have any abdominal pain and is not febrile, acute natremia, acute renal failure or from alcohol use and/or decreased p.o. intake. Unclear if patient may have underlying cancer, which would not be determined here in the emergency department but will be continued and workup. RADIOLOGY Procedure(s): [facility] Accession Number(s): [id number] cc: Duc Ballesteros MD; NO PRIMARY/FAMILY,PHYSICIAN; Oneal Kim MD~ Examination: CT chest, without intravenous contrast. Sagittal and coronal 2-D reconstructions. Exam date and time: June 26, 2024 1903 hours INDICATIONS: Acute renal failure today, shortness of breath CTDI:vol (mGy) 9.36 DLP: (mGycm) 263 Technique: Multiple 3.0 mm axial sections of the chest to been obtained. Bone and lung density settings are obtained. Sagittal and coronal 2-D reconstructions have been obtained. Low dose protocols were performed. One or more of the following dose reduction techniques were used; automated exposure control, adjustment of the mA and/or KV according to patient size, use of iterative reconstruction technique. Findings: Fluid distended esophagus No thoracic aortic aneurysm dilatation Pulmonary artery segments are not enlarged Pericardial effusion posteriorly measuring up to 15 mm Significant left base pneumonia Minimal bilateral pleural disease Moderate osteopenia IMPRESSION: Fluid distended esophagus, clinical correlation advised Pericardial effusion measuring up to 15 mm Significant left base pneumonia Dictated By: Duc Ballesteros MD Procedure(s): CT abdomen pelvis [facility] Accession Number(s): [id number] cc: Duc Ballesteros MD; NO PRIMARY/FAMILY,PHYSICIAN; Oneal Kim MD~ Examination: CT abdomen and pelvis without contrast. Coronal 3-D reconstructions. Sagittal 2-D reconstructions. Date and time of exam:June 26, 2024 at 1703 hours INDICATIONS: Abdominal pain, acute renal failure today CTDI: vol (mGy): 9.12 DLP: (mGycm): 536 Technique: Axial images of the abdomen have been obtained, 3 mm slice thickness Intravenous contrast material has not been administered. Low dose protocols were performed. One or more of the following dose reduction techniques were used; automated exposure control, adjustment of the mA and/or KV according to patient size, use of iterative reconstruction technique. Findings: Significant left base pneumonia Minimal bilateral pleural disease Pericardial effusion measuring up to 12 mm Diffuse fatty infiltration throughout the liver Hyperdense contracted gallbladder No splenic or pancreatic mass Moderate bilateral renal parenchymal scar formation with perinephric stranding Suspicious for solid mass posterior right kidney, 29 mm Aorta normal size No bowel obstruction Normal appendix No diverticulitis Atrophic uterus with calcifications Urinary bladder intact No adnexal mass Advanced degenerative disc disease L2-L3, significant osteopenia IMPRESSION: Significant left base pneumonia Pericardial effusion measuring up to 12 mm Diffuse fatty liver Hyperdense gallbladder, recommend hepatobiliary sonography follow-up Moderate bilateral renal parenchymal scar formation Suspicious for solid mass posterior right kidney, 29 mm, recommend renal sonography follow-up Normal appendix No bowel obstruction Dictated By: Duc Ballesteros MD Procedure(s): XR chest 1V SEPSIS PROTOCOL Accession Number(s): [id number] cc: Duc Ballesteros MD; NO PRIMARY/FAMILY,PHYSICIAN; Oneal Kim MD~ Examination: AP chest single view TECHNIQUE: AP portable upright chest single view Exam date and time: June 26, 2024 1611 hours INDICATIONS: Sepsis protocol. FINDINGS: Early pneumonia left base Mild prominence left ventricle Cardiac leads satisfactory position Mild to moderate vascular congestion Right axillary surgical clips IMPRESSION: Early pneumonia left base Dictated By: Duc Ballesteros MD Procedure(s): CT head/brain wo con Accession Number(s): [id number] cc: Duc Ballesteros MD; NO PRIMARY/FAMILY,PHYSICIAN; Oneal Kim MD~ Examination: CT brain head without contrast. 2-D sagittal coronal reconstructions Date and time of exam:June 26, 2024 1701 hours INDICATIONS: Onset slurred speech generalized body weakness today CTDI: vol (mGy):45.8 DLP: (mGycm):960 Technique: Multiple CT axial sections of the brain have been obtained, 5 mm slice thickness. Contrast has not been administered. 2-D sagittal, coronal reconstructions have been obtained Low dose protocols were performed. One or more of the following dose reduction techniques were used; automated exposure control, adjustment of the mA and/or KV according to patient size, use of iterative reconstruction technique. Findings: No significant ventricular enlargement. Axial image 35 demonstrates 33 x 38 mm subtle low density area in the left cerebellar hemisphere Intra-axial or extra-axial hemorrhage density is not seen. No mass effect or midline shift Basal cisterns are not remarkable. Fourth ventricle is midline. Cranial vault intact. 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 Dictated By: Duc Ballesteros MD <Kaylen Jurado - Last Filed: 06/27/24 01:56> Addendum Narrative: 1814: Care assumed from the previous shift, emergency physician. Past medical, surgical, social and family history reviewed. Vitals and home medications reviewed. Previous providers consulted Dr. Jo or declined patient admission to ICU, Dr. Ag for consult, 1814: I will assume the care of the patient at this time, pending re-evaluation, and final disposition. Please refer to the emergency department record for history and examination from initial visit. What I Plan at sign-out. 1 liter will be given then re-evaluation pending admission, ICU vs hospitalist services. Physical exam by me shows patient under min acute distress at this time. SBP 95 I, Karlene Hernandez MD took sign-out from previous providers. on shift Dr. Kim and Dr. Gaines. I did a physical on the patient, reviewed the note, and agree with the re-evaluation and continued workup to include giving 1 L of IVF and re-consulting ICU and/or the floor team for admission and repeat labs. 2032: Discussed case with [Dr. Ryan] from Hospitalist service regarding admission. Discussed patients ED course, exam findings, labs, and radiology results. Requests an ultrasound. Patient given 1 L fluid. Improved creatinine down to 2.7 from 3.0. Lactate improved as well. Ultrasound is performed which does not show renal mass and no ascites. Suspect the patient has long history of alcohol use and/or alcohol ketosis and dehydration secondary to decreased p.o. intake. However with the elevated lactate discussed with admitting physician who agrees to start Zosyn. Other differential diagnosis includes acute cholecystitis, common bile duct stone, sepsis, acute hepatitis, SBP although patient does not have any abdominal pain and is not febrile, acute natremia, acute renal failure or from alcohol use and/or decreased p.o. intake. Unclear if patient may have underlying cancer, which would not be determined here in the emergency department but will be continued and workup. 5: Dr. Ryan accepts the patient for admission. RADIOLOGY Procedure(s): CT chest wo con Accession Number(s): [id number] cc: Duc Ballesteros MD; NO PRIMARY/FAMILY,PHYSICIAN; Oneal Kim MD~ Examination: CT chest, without intravenous contrast. Sagittal and coronal 2-D reconstructions. Exam date and time: June 26, 2024 1903 hours INDICATIONS: Acute renal failure today, shortness of breath CTDI:vol (mGy) 9.36 DLP: (mGycm) 263 Technique: Multiple 3.0 mm axial sections of the chest to been obtained. Bone and lung density settings are obtained. Sagittal and coronal 2-D reconstructions have been obtained. Low dose protocols were performed. One or more of the following dose reduction techniques were used; automated exposure control, adjustment of the mA and/or KV according to patient size, use of iterative reconstruction technique. Findings: Fluid distended esophagus No thoracic aortic aneurysm dilatation Pulmonary artery segments are not enlarged Pericardial effusion posteriorly measuring up to 15 mm Significant left base pneumonia Minimal bilateral pleural disease Moderate osteopenia IMPRESSION: Fluid distended esophagus, clinical correlation advised Pericardial effusion measuring up to 15 mm Significant left base pneumonia Dictated By: Duc Ballesteros MD Procedure(s): CT abdomen pelvis [facility] Accession Number(s): [id number] cc: Duc Ballesteros MD; NO PRIMARY/FAMILY,PHYSICIAN; Oneal Kim MD~ Examination: CT abdomen and pelvis without contrast. Coronal 3-D reconstructions. Sagittal 2-D reconstructions. Date and time of exam:June 26, 2024 at 1703 hours INDICATIONS: Abdominal pain, acute renal failure today CTDI: vol (mGy): 9.12 DLP: (mGycm): 536 Technique: Axial images of the abdomen have been obtained, 3 mm slice thickness Intravenous contrast material has not been administered. Low dose protocols were performed. One or more of the following dose reduction techniques were used; automated exposure control, adjustment of the mA and/or KV according to patient size, use of iterative reconstruction technique. Findings: Significant left base pneumonia Minimal bilateral pleural disease Pericardial effusion measuring up to 12 mm Diffuse fatty infiltration throughout the liver Hyperdense contracted gallbladder No splenic or pancreatic mass Moderate bilateral renal parenchymal scar formation with perinephric stranding Suspicious for solid mass posterior right kidney, 29 mm Aorta normal size No bowel obstruction Normal appendix No diverticulitis Atrophic uterus with calcifications Urinary bladder intact No adnexal mass Advanced degenerative disc disease L2-L3, significant osteopenia IMPRESSION: Significant left base pneumonia Pericardial effusion measuring up to 12 mm Diffuse fatty liver Hyperdense gallbladder, recommend hepatobiliary sonography follow-up Moderate bilateral renal parenchymal scar formation Suspicious for solid mass posterior right kidney, 29 mm, recommend renal sonography follow-up Normal appendix No bowel obstruction Dictated By: Duc Ballesteros MD Procedure(s): XR chest 1V SEPSIS PROTOCOL Accession Number(s): [id number] cc: Duc Ballseteros MD; NO PRIMARY/FAMILY,PHYSICIAN; Oneal Kim MD~ Examination: AP chest single view TECHNIQUE: AP portable upright chest single view Exam date and time: June 26, 2024 1611 hours INDICATIONS: Sepsis protocol. FINDINGS: Early pneumonia left base Mild prominence left ventricle Cardiac leads satisfactory position Mild to moderate vascular congestion Right axillary surgical clips IMPRESSION: Early pneumonia left base Dictated By: Duc Ballesteros MD Procedure(s): CT head/brain wo [facility] Accession Number(s): [id number] cc: Duc Ballesteros MD; NO PRIMARY/FAMILY,PHYSICIAN; Oneal Kim MD~ Examination: CT brain head without contrast. 2-D sagittal coronal reconstructions Date and time of exam:June 26, 2024 1701 hours INDICATIONS: Onset slurred speech generalized body weakness today CTDI: vol (mGy):45.8 DLP: (mGycm):960 Technique: Multiple CT axial sections of the brain have been obtained, 5 mm slice thickness. Contrast has not been administered. 2-D sagittal, coronal reconstructions have been obtained Low dose protocols were performed. One or more of the following dose reduction techniques were used; automated exposure control, adjustment of the mA and/or KV according to patient size, use of iterative reconstruction technique. Findings: No significant ventricular enlargement. Axial image 35 demonstrates 33 x 38 mm subtle low density area in the left cerebellar hemisphere Intra-axial or extra-axial hemorrhage density is not seen. No mass effect or midline shift Basal cisterns are not remarkable. Fourth ventricle is midline. Cranial vault intact. 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 Dictated By: Duc Ballesteros MD [place] [facility] Report Signed Patient: ARGELIA RATLIFF Record#: [id number] Birthdate: 1960 Age/Sex: 64 / F Location: [facility] Attending Dr: Ordering Physician: Karlene Hernandze MD Date of Service: 06/26/24 Procedure(s): US abdomen Accession Number(s): [id number] cc: Duc Ballesteros MD; NO PRIMARY/FAMILY,PHYSICIAN; Karlene Hernandez MD~ Examination: Abdomen sonogram, complete Date and time of exam: June 26, 2024 2118 hrs. Indications: Nausea vomiting beginning 4 days ago., Suspicious for solid mass posterior right kidney [address] abdomen study today Technique: Multiple real-time grayscale transabdominal sonographic images of the abdomen have been obtained. Findings: Normal gallbladder Normal common bile duct 0.2 cm Pancreatic head 3.1 cm Aorta not enlarged Liver 16.7 cm irregular contour fatty infiltration Normal hepatopedal portal venous flow Patent IVC Right kidney 14.0 x 4.5 x 5.2 cm cortex 2.0 cm Left kidney 11.9 x 5.6 x 4.9 cm cortex 1.9 cm No hydronephrosis Moderate bilateral renal parenchymal scar formation Spleen 11.5 cm Impression: No solid renal mass lesion is noted, recommend 3 month bilateral renal sonography follow-up Dictated By: Duc Ballesteros MD Signed By: <Electronically signed by Duc Ballesteros MD in OV> 06/26/242220 Critical Care Time: 45 minutes The high probability of sudden, clinically significant deterioration in the patient?s condition required the highest level of my preparedness to intervene urgently. The services I provided to this patient were to treat and/or prevent clinically significant deterioration. Services included the following: chart data review, reviewing nursing notes and/or old charts, documentation time, industrial methods consultant collaboration regarding findings and treatment options, medication orders and management, direct patient care, vital sign assessments and ordering, interpreting and reviewing diagnostic studies and lab tests. Aggregate critical care time includes only time during which I was engaged in work directly related to the patient?s care, as described above, whether at bedside or elsewhere in the Emergency Department. It did not include time spent performing other reported procedures or the services of residents, students, nurses or physician assistants. After the patient was already admitted, the hospitalist requested the patient to be intubated due to change in mentation. While at the bedside, Kira Arteaga called overhead at 0041. Etomidate and Rocuronium given. During the 2nd intubation attempt, there was a significant amount of bleeding noted. Passed easily with positive color change and equal breath sounds. Patient was intubated with a 7.0 tube, 24 cm at the teeth. Medicine team handled the code, and the patient was resuscitated after epi and bicarb. Patient was then transferred to the ICU. CXR shows ET in good placement, no pneumothorax, right mid and upper low haziness, possibly consistent with aspiration pneumonia, cannot r/o left lobe infiltrate, according to my interpretation.
[2024-06-26] MEDS: Magnesium Sulfate 1 gm Ivpb 1 GM/100 ML BAG IV (19:41)
[2024-06-26 20:06] LABS: Albumin, Serum 2.9 gm/dL (3.4-4.8); Anion Gap 17 (7-16); BUN/Creatinine Ratio 24 Ratio (12-20); Blood Urea Nitrogen 66 mg/dL (9-23); Calcium 7.5 mg/dL (8.3-10.6); Calcium (Corrected) 8.4 mg/dL (8.5-10.1); Carbon Dioxide 19.2 mMol/L (20.0-31.0); Chloride 87 mMol/L (98-107); Creatinine (Component) 2.7 mg/dL (0.6-1.3); Estimated Creatinine Clearance 18.1 mL/min (>60); Glucose 118 mg/dL (74-106); Osmolality,Calculated 267 (275-295); Phosphorous 2.9 mg/dL (2.4-5.1); Potassium 3.5 mMol/L (3.4-5.1); Sodium 123 mMol/L (136-145); eGFR 19 See Note
[2024-06-26 20:08] LABS: Lactic Acid, 3 HR 6.2 mMol/L (0.4-2.0)
--- NOTE | 2024-06-26 20:43 | XR_ITS ---
Examination: Abdomen sonogram, complete Date and time of exam: June 26, 2024 2118 hrs. Indications: Nausea vomiting beginning 4 days ago., Suspicious for solid mass posterior right kidney [address] abdomen study today Technique: Multiple real-time grayscale transabdominal sonographic images of the abdomen have been obtained. Findings: Normal gallbladder Normal common bile duct 0.2 cm Pancreatic head 3.1 cm Aorta not enlarged Liver 16.7 cm irregular contour fatty infiltration Normal hepatopedal portal venous flow Patent IVC Right kidney 14.0 x 4.5 x 5.2 cm cortex 2.0 cm Left kidney 11.9 x 5.6 x 4.9 cm cortex 1.9 cm No hydronephrosis Moderate bilateral renal parenchymal scar formation Spleen 11.5 cm Impression: No solid renal mass lesion is noted, recommend 3 month bilateral renal sonography follow-up
--- NOTE | 2024-06-26 21:50 | PD.IMCONS ---
HPI Data of Consult Primary Care Provider: Physician No Primary/Family Consult Narrative Reason for consult: Abnormal LFTs, alcohol use disorder, slurred speech, History of present illness: 64 years old female brought into the emergency room by the family I was called in by the internal medicine team for evaluation as patient had total bili was 6.7 AST ALT [id number] with an alk phos of 129 Patient has been drinking alcohol for last 40 years mostly drinks rum Patient also had lactic acid 6.2 ammonia level of [address] scan of the chest abdomen pelvis done without contrast showed fluid-filled esophagus left basal pneumonia fatty liver pericardial effusion 29 mm right kidney mass Patient does have a history of congestive heart failure with ejection fraction of 20% breast CA status post chemoradiation hypothyroidism cc:: cc: Review of Systems Review of Systems Systems Reviewed: All systems reviewed, normal except as documented Past Medical History Surgical History OTHER SURGICAL HX: As in the history of present illness Meds Home Medications and Allergies Home Medications ?Medication ?Instructions ?Recorded ?Confirmed ?Type Bupropion Hcl (Bupropion Hcl Xl) 300 mg PO QDAY ##90 10/14/16 12/13/21 History alprazolam 0.5 mg tablet 1 mg PO QDAY PRN ANXIETY ##135 10/14/16 12/13/21 History cholecalciferol (vitamin D3) 50 4,000 unit PO QDAY #0 caps 10/14/16 12/13/21 History mcg (2,000 unit) capsule (Vitamin D3) lamotrigine 100 mg tablet 100 mg PO BID ##180 10/14/16 12/13/21 History levothyroxine 50 mcg tablet 50 mcg PO QDAY ##90 10/14/16 12/13/21 History (Synthroid) metoprolol succinate 100 mg 100 mg PO QDAY 10/19/21 12/13/21 History capsule sprinkle, ext. release 24 hr multivitamin 1 tab PO DAILY 10/19/21 12/13/21 History sacubitril 24 mg-valsartan 26 mg 1 tab PO BID 10/19/21 12/13/21 History tablet (Entresto) Allergies Allergy/AdvReac Type Severity Reaction Status Date / Time Sulfa (Sulfonamide Allergy Severe THROAT Verified 12/13/21 12:29 Antibiotics) SWELLS,ANAPHYLAXIS erythromycin base Allergy Mild rash Verified 12/13/21 12:29 Exam Vital Signs Temp Pulse Resp BP Pulse Ox O2 Del Method O2 Flow Rate 96.1 F L 111 H 20 103/68 93 L Oxy Mask 7 06/26/24 20:48 06/26/24 20:48 06/26/24 20:48 06/26/24 20:48 06/26/24 20:48 06/26/24 20:48 06/26/24 20:48 Constitutional Comments: Chronically ill-appearing Routine Respiratory Exam Comments: Normal to auscultation Routine Abdominal Exam Comments: Soft nontender Results Labs 06/26/24 16:00 06/26/24 18:42 Labs: Short CBC 06/26/24 Range/Units 16:00 WBC 9.0 (3.6-11.0) Thou/mm3 Hgb 13.5 (12.0-16.0) g/dL Hct 37.2 (36.0-46.0) % Plt Count 41 L (140-440) Thou/mm3 BMP 06/26/24 06/26/24 15:24 18:42 Sodium 118 L* 123 L Potassium 3.2 L 3.5 Chloride 81 L 87 L Carbon Dioxide 18.4 L 19.2 L BUN 64 H 66 H Creatinine 3.0 H 2.7 H Glucose 132 H 118 H Calcium 8.9 7.5 L Cardiac Enzymes 06/26/24 Range/Units 18:42 Troponin I 0.042 (0.0-0.045) ng/mL Liver Function 06/26/24 06/26/24 Range/Units 15:24 18:42 Total Bilirubin 6.7 H (0.3-1.2) mg/dL AST 4641 H* (0-34) U/L ALT 2556 H* (10-49) U/L Alkaline Phosphatase 129 H (46-116) U/L Albumin 3.7 2.9 L D (3.4-4.8) gm/dL Assessment and Plan Additional Assessment & Plan Additional Plan: # Abnormal LFTs combination of chronic liver disease with component of acute alcoholic hepatitis with possibly hypoxic hepatitis Plan IV Solu-Medrol 40 mg IV push every 12 Trend the LFTs Complete abstinence from alcohol # Lactic acidosis # Congestive heart failure with ejection fraction 20% # Fluid-filled esophagus could be esophageal motility disorder or may be a stricture at the GE junction # Fatty liver # 29 mm right kidney mass # Hypothyroidism # Breast carcinoma status post chemoradiation Thank you very much for the opportunity to participate in care of this patient Will consider doing upper endoscopy once patient is more stable prior to discharge
[2024-06-26 22:11] LABS: Acetaminophen 24.8 mcg/mL (10.0-20.0)
[2024-06-26] MEDS: PIPER/TAZO INJ 4.5 GM in SODIUM CHLORIDE 0.9% 100 ML IV (22:12)
[2024-06-26] MEDS: LACTULOSE SYRUP 20 GM/30 ML UDC PO (22:16)
[2024-06-26 22:30] LABS: Ferritin > 1650 ng/mL (7.3-270.7); Total Iron Binding Capacity 203 mcg/dL (250-425)
[2024-06-26 22:40] LABS: Iron 114 mcg/dL (50-170); Percent Iron Saturation 56 % (20-55); Unsaturated Iron Binding 89 (225-295)
[2024-06-26 22:51] LABS: Hepatitis A Antibody IgM Non Reactive (Non React); Hepatitis B Core Antibody IgM Non Reactive (Non React); Hepatitis B Surface Ab NonReact(Not Immune) (Immune); Hepatitis B Surface Antigen Non Reactive (Non React); Hepatitis C Antibody Non Reactive (Non React)
--- NOTE | 2024-06-26 23:00 | PD.RESHP ---
Documentation for date of: 06/26/24 [facility] History of Present Illness Chief complaint: vomitings History of present illness: A 64-year-old female with significant past medical history of alcohol abuse, breast cancer s/p lumpectomy, axillary lymph node removal on right side, status post chemoradiation, HFrEF 20% secondary to chemotoxicity s/p LOCKER ATTENDANT placement in 2021, hypertension, hypothyroidism was brought to the hospital with chief complaints of vomitings since 4 days. Patient was lethargic, having slurred speech so most of the history was given by her . Per , patient was apparently normal 4 days ago, later patient started having vomitings, 3-4 episodes per day bilious in nature not associated with any blood or blackish discoloration of vomitus and mostly contents the food material. Also reported that patient is complaining of diffuse myalgias and arthralgias were last 4 days. took 5-6 doses of tylenol per day in the last 4 days. Denies any recent travel, outside food, fever, abdominal pain, abdominal distention, lower extremity swelling, chest pain, shortness of breath, diarrhea. On the day of admission, noted that patient is having slurred speech. Reported that patient is having generalized weakness and did not notice any focal neurological deficits. Per , patient drinks 4-5 drinks every single day ED Course: -Initial vitals were blood pressure 133/78 mmHg, pulse rate 78 bpm, respiratory rate 19/min, temperature 98.9 ?F, SpO2 98% with oxygen through nasal cannula. -Labs significant for WBC 9, hemoglobin 13.5, platelets 41, INR 1.7, PT 17.6, sodium 118, potassium 3.2, chloride 81, bicarb 18.4, anion gap 19, BUN 64, creatinine 3, total bilirubin 6.7, AST 4641, ALT 2556, ALP 129, procalcitonin 91.95. Acetaminophen levels are 24.8 -Head CT is negative for acute hemorrhage, mass effect or midline shift. Suspicious for acute nonhemorrhagic infarct in the left cerebellar hemisphere. Abdomen/pelvis CT showed significant left base pneumonia, pericardial effusion, diffuse fatty liver, hyperdense gallbladder, moderate bilateral renal parenchymal scar formation. chest CT showed fluid distended esophagus, pericardial effusion, significant left base pneumonia. -In the ED, patient was given 3 L of NS -Patient was admitted for acute liver failure and acute kidney injury Past medical history: Alcohol abuse, breast cancer s/p lumpectomy, axillary lymph node removal on right side, status post chemoradiation, HFrEF 20% secondary to chemotoxicity s/p LOCKER ATTENDANT placement in 2021, hypertension, hypothyroidism Past surgical history: Right breast lumpectomy and axillary lymph node removal, oophorectomy Social history: Alcohol abuse, since age of 18 drinking 5-6 drinks in a day, denies smoking, other illicit drug abuse Review of Systems Review of Systems ROS Unobtainable: unobtainable due to mental status Exam Vital Signs Temp Pulse Resp BP Pulse Ox O2 Del Method O2 Flow Rate 95.5 F L 133 H 20 115/72 92 L Ambu-Bag 7 06/27/24 03:25 06/27/24 03:25 06/27/24 03:25 06/27/24 03:25 06/27/24 03:25 06/27/24 01:27 06/26/24 23:47 FiO2 100 06/27/24 01:56 Narrative Exam General: Awake. lethargic. slurred speech HEENT: Normocephalic, atraumatic, mucous membranes dry. Heart: Regular rate and rhythm, no murmurs. Lungs: Clear to auscultation with no wheezing or crackles. Abdomen: Soft, nondistended, nontender, positive bowel sounds. ?No guarding or rebound tenderness. Neurologic: Alert and oriented x1, no gross neurological deficit, and patient able to move all 4 extremities. Extremities: No edema. Skin: No rash or ecchymoses. Results: Labs 06/27/24 03:41 06/27/24 03:41 Labs: Short CBC 06/26/24 06/27/24 Range/Units 16:00 01:05 WBC 9.0 (3.6-11.0) Thou/mm3 Hgb 13.5 8.5 L D (12.0-16.0) g/dL Hct 37.2 25.2 L D (36.0-46.0) % Plt Count 41 L (140-440) Thou/mm3 BMP 06/26/24 06/26/24 06/26/24 15:24 18:42 23:27 Sodium 118 L* 123 L 125 L Potassium 3.2 L 3.5 Chloride 81 L 87 L Carbon Dioxide 18.4 L 19.2 L BUN 64 H 66 H Creatinine 3.0 H 2.7 H Glucose 132 H 118 H Calcium 8.9 7.5 L 06/27/24 01:05 Sodium 133 L Potassium 4.2 D Chloride 90 L Carbon Dioxide 18.5 L BUN 59 H Creatinine 2.8 H Glucose 99 Calcium 9.4 D Cardiac Enzymes 06/26/24 Range/Units 18:42 Troponin I 0.042 (0.0-0.045) ng/mL Liver Function 06/26/24 06/26/24 06/26/24 Range/Units 15:24 18:42 23:27 Total Bilirubin 6.7 H (0.3-1.2) mg/dL Direct Bilirubin 4.8 H (0.0-0.3) mg/dL AST 4641 H* (0-34) U/L ALT 2556 H* (10-49) U/L Alkaline Phosphatase 129 H (46-116) U/L Albumin 3.7 2.9 L D (3.4-4.8) gm/dL 06/27/24 Range/Units 01:05 Total Bilirubin 3.7 H D (0.3-1.2) mg/dL Direct Bilirubin (0.0-0.3) mg/dL AST 1671 H* (0-34) U/L ALT 1167 H* (10-49) U/L Alkaline Phosphatase 87 D (46-116) U/L Albumin 1.8 L D (3.4-4.8) gm/dL ABG Interpretation ABG results: 06/27/24 02:56 ABG pH 6.89 L* ABG pCO2 55 H ABG pO2 139 H ABG HCO3 11 L ABG O2 Saturation 97 ABG Base Excess -22 L Quality Measures Quality Measures none Medications Home Medications and Allergies Home Medications ?Medication ?Instructions ?Recorded ?Confirmed ?Type Bupropion Hcl (Bupropion Hcl Xl) 300 mg PO QDAY ##90 10/14/16 12/13/21 History alprazolam 0.5 mg tablet 1 mg PO QDAY PRN ANXIETY ##135 10/14/16 12/13/21 History cholecalciferol (vitamin D3) 50 4,000 unit PO QDAY #0 caps 10/14/16 12/13/21 History mcg (2,000 unit) capsule (Vitamin D3) lamotrigine 100 mg tablet 100 mg PO BID ##180 10/14/16 12/13/21 History levothyroxine 50 mcg tablet 50 mcg PO QDAY ##90 10/14/16 12/13/21 History (Synthroid) metoprolol succinate 100 mg 100 mg PO QDAY 10/19/21 12/13/21 History capsule sprinkle, ext. release 24 hr multivitamin 1 tab PO DAILY 10/19/21 12/13/21 History sacubitril 24 mg-valsartan 26 mg 1 tab PO BID 10/19/21 12/13/21 History tablet (Entresto) Allergies Allergy/AdvReac Type Severity Reaction Status Date / Time Sulfa (Sulfonamide Allergy Severe THROAT Verified 12/13/21 12:29 Antibiotics) SWELLS,ANAPHYLAXIS erythromycin base Allergy Mild rash Verified 12/13/21 12:29 Visit Medications Piperacillin/Tazobactam/Dextrose (Zosyn) 50 mls @ 12.5 mls/hr IV Q12HR COUNTS INCLUDE 234 BEDS AT THE [facility] Stop: 07/04/24 08:59 Octreotide Acetate 1,000 mcg/ (Sodium Chloride) 102 mls @ 5.1 mls/hr IV .Q20H EMMA; Protocol Stop: 07/02/24 20:44 Albumin Human (Albuminar-25 Ivpb) 25 gm in 100 mls @ 100 mls/hr IV QDAY EMMA Stop: 06/30/24 00:14 Last Admin: 06/27/24 00:30 Dose: 100 mls/hr Octreotide Acetate 1,000 mcg/ (Sodium Chloride) 102 mls @ 5.1 mls/hr IV .Q20H EMMA; Protocol Stop: 06/27/24 20:44 Epinephrine/Sodium Chloride (Adrenalin/Ns 4 Mg Ivpb) 4 mg in 250 mls @ 15 mls/hr IV .[id number] PRN; Protocol PRN Reason: per protocol Stop: 07/27/24 01:41 Last Titration: 06/27/24 03:14 Dose: 0.1 mcg/kg/min, 30 mls/hr Propofol (Diprivan Ivpb) 1,000 mg in 100 mls @ 2.4 mls/hr IV .Q24H PRN; Protocol PRN Reason: PER PROTOCOL Stop: 07/27/24 02:54 Fentanyl Citrate (Sublimaze Inj 2,500 Mcg/250 Ml Bag) 2,500 mcg in 250 mls @ 2.5 mls/hr IV .Q24H PRN; Protocol PRN Reason: PER PROTOCOL Stop: 07/02/24 02:54 Norepinephrine/Dextrose (Levophed In D5w 8mg/250ml) 8 mg in 250 mls @ 7.5 mls/hr IV .Q24H PRN; Protocol PRN Reason: PER PROTOCOL Stop: 07/27/24 03:07 Sodium Bicarbonate 88.23 meq/ (Dextrose) 588.23 mls @ 100 mls/hr IV .Q5H53M EMMA Stop: 07/27/24 03:20 Amiodarone HCl 300 mg/ (Dextrose) 106 mls @ 600 mls/hr IV X1 ONE Stop: 06/27/24 03:42 Magnesium Sulfate (Magnesium Sulfate Ivpb) 2 gm in 50 mls @ 25 mls/hr IV X1 ONE Stop: 06/27/24 05:34 Lactulose (Lactulose Syrup 20 Gm/30 Ml Udc) 20 gm PO TID EMMA; Protocol Stop: 07/26/24 21:59 Last Admin: 06/26/24 22:16 Dose: 20 gm Methylprednisolone Sodium Succinate (Methylprednisolone Sod Succ 40 Mg Vial) 40 mg IVP Q12HR EMMA Stop: 07/03/24 21:29 Last Admin: 06/26/24 22:12 Dose: 40 mg Ondansetron HCl (Ondansetron Inj 2 Mg/Ml Inj 2 Ml) 4 mg IV Q6H PRN; Protocol PRN Reason: NAUSEA OR VOMITING Stop: 07/26/24 22:30 Pharmacy Consult (Pharmacy Renal Dose Adjustment 1 Ea) 1 each XX PRN PRN PRN Reason: CONSULT Stop: 07/26/24 21:13 Pharmacy Consult (Pharmacy Renal Dose Adjustment 1 Ea) 1 each XX QDAY EMMA Stop: 07/27/24 08:59 Discontinued Medications Albuterol/Ipratropium (Albuterol/Ipratropium (Duoneb) Rt Denisa 3 Ml Nebu) 3 ml INH Q6HRRT PRN PRN Reason: sob or wheeze Stop: 07/27/24 00:59 Dextrose (Dextrose 50%-Water Inj 50 Ml Syringe) 50 ml IV X1 ONE Stop: 06/27/24 02:39 Etomidate (Etomidate Inj 2 Mg/Ml Vial 10 Ml) 20 mg IVP X1 ONE Stop: 06/27/24 00:34 Last Admin: 06/27/24 01:39 Dose: Not Given Folic Acid (Folic Acid Inj 1 Mg/0.2 Ml) 1 mg IVP X1 ONE Stop: 06/26/24 16:51 Last Admin: 06/26/24 18:00 Dose: 1 mg Sodium Chloride (Ns) 1,000 mls @ 999 mls/hr IV .Q1H1M ONE Stop: 06/26/24 17:10 Last Infusion: 06/26/24 18:08 Dose: Infused Sodium Chloride (Ns) 500 mls @ 999 mls/hr IV .Q31M ONE Stop: 06/26/24 17:03 Last Infusion: 06/26/24 18:08 Dose: Infused Thiamine HCl 250 mg/ Sodium (Chloride) 102.5 mls @ 205 mls/hr IV X1 ONE Stop: 06/26/24 17:20 Last Infusion: 06/26/24 18:43 Dose: Infused Sodium Chloride (Ns) 1,000 mls @ 999 mls/hr IV .Q1H1M ONE Stop: 06/26/24 19:00 Last Infusion: 06/26/24 21:57 Dose: Infused Magnesium Sulfate/Dextrose (Magnesium Sulfate Ivpb) 1 gm in 100 mls @ 100 mls/hr IV X1 ONE Stop: 06/26/24 20:18 Last Infusion: 06/26/24 21:56 Dose: Infused Piperacillin Sod/Tazobactam (Sod 4.5 gm/ Sodium Chloride) 100 mls @ 200 mls/hr IV X1 ONE Stop: 06/26/24 22:14 Last Infusion: 06/26/24 23:44 Dose: Infused Sodium Chloride (Ns) 1,000 mls @ 999 mls/hr IV .Q1H1M ONE Stop: 06/27/24 02:04 Last Admin: 06/27/24 01:41 Dose: 999 mls/hr Octreotide Acetate (Octreotide Acet Inj 50 Mcg/Ml Vial) 50 mcg IV X1 ONE Stop: 06/27/24 00:15 Ondansetron HCl (Ondansetron Inj 2 Mg/Ml Inj 2 Ml) 4 mg IV X1 ONE; Protocol Stop: 06/26/24 16:48 Last Admin: 06/26/24 18:01 Dose: 4 mg Pantoprazole Sodium (Pantoprazole Inj 40 Mg Vial) 80 mg IV X1 ONE Stop: 06/27/24 00:10 Potassium Chloride (Potassium Chloride 10% 20 Meq/15 Ml Udc) 40 meq PO X1 ONE Stop: 06/26/24 16:48 Last Admin: 06/26/24 18:01 Dose: 40 meq Rocuronium Simpson (Rocuronium Inj 10 Mg/Ml Vial 10 Ml) 80 mg IVP X1 ONE Stop: 06/27/24 00:33 Last Admin: 06/27/24 00:41 Dose: 80 mg Sodium Bicarbonate (Sodium Bicarb Inj 8.4% Syr 50 Ml Syringe) 50 ml IV X1 ONE Stop: 06/27/24 03:21 Last Admin: 06/27/24 03:24 Dose: 50 ml Sodium Bicarbonate (Sodium Bicarb Inj 8.4% Syr 50 Ml Syringe) 50 ml IV X1 ONE Stop: 06/27/24 03:22 Last Admin: 06/27/24 03:24 Dose: 50 ml Sodium Bicarbonate (Sodium Bicarb Inj 8.4% Syr 50 Ml Syringe) 50 ml IV X1 ONE Stop: 06/27/24 03:23 Last Admin: 06/27/24 03:24 Dose: 50 ml Assessment & Plan Plan A 64-year-old female with significant past medical history of alcohol abuse, breast cancer s/p lumpectomy, axillary lymph node removal on right side, status post chemoradiation, HFrEF 20% secondary to chemotoxicity s/p LOCKER ATTENDANT placement in 2021, hypertension, hypothyroidism was brought to the hospital with chief complaints of vomitings since 4 days and admitted for Metabolic encephalopathy secondary to Acute liver and kidney failure # Acute Metabolic encephalopathy # Likely secondary to underlying metabolic acidosis due to acute liver and kidney failure -Per , patient developed slurring speech on the day of admission but able to answer questions appropriately -On examination, patient had slurring speech able to answer questions but speech is difficult to understand Plan -Bicarb infusions were given -Will monitor electrolytes and replete accordingly # Acute liver failure, possible viral vs alcoholic vs autoimmune vs ischemic hepatitis # Elevated transaminitis # Thrombocytopenia # Acute coagulopathy # History of alcohol abuse -Patient had multiple episodes of vomitings since 4 days, bilious in nature -Denies fever, abdominal pain, recent travel, similar complaints in the family, recent outside food intake -But complaining of associated severe myalgias and arthralgias -Labs done at the time of admission showed elevated bilirubin, transaminase, lactate, INR levels -Acetaminophen levels are 24.8 Plan -Viral markers are sent -Placed on steroids -Will monitor liver functions and coagulation profile -Planning to start lactulose in view of elevated ammonia # Acute renal failure Likely due to underlying liver failure and poor oral intake secondary to vomitings -Labs at the time of admission showed elevated BUN to 63, creatinine 3 Plan -2 L of NS boluses given in the ED -Will continue to monitor renal functions -Avoid nephrotoxic medications and -Renally dose medications. # Hyponatremia # Hypokalemia Likely due to the poor oral intake and multiple episodes of vomiting -At the time of admission, sodium is 118, potassium is 3.2 -Received bolus of NS in the ED -Will monitor electrolytes and replete accordingly # High anion gap metabolic acidosis Likely due to combined acute liver and renal failure -Patient received bolus of NS in the ED -Will continue to monitor electrolytes and replete accordingly Hospital Maintenance: Dispo: Tele DVT ppx: SCD GI ppx: Protonix Diet : n.p.o IV lines: Peripheral Code status: Full Patient plan of care was discussed with the attending physician, Dr. Connor Kelly, PGY1 Attending Provider Attestation/Addendum I have discussed and was present for the essential components of the history, physical examination, diagnosis, and treatment plan with the resident. I agree with the patient's care as documented by the resident and amended herein by me. Isac Ryan DO. Although this document has been carefully reviewed, there may still be some phonetic and other typographical errors. These errors are purely grammatical due to imperfections in the software program and should not be construed in any way to compromise the substance of the patient's medical care during this visit.
[2024-06-27] VITALS (52 sets, daily range): BP systolic 2–155; BP diastolic 0–95; PULSE 102–148; RESP 16–100; TEMP 29.4–35.3; O2SAT 2–100
[2024-06-27 00:30] LABS: HIV (1&2) Antibody Rapid Non-Reactive
[2024-06-27] MEDS: ALBUMIN HUMAN 25% IVPB 25 GM/100 ML BTL IV (00:30)
[2024-06-27 00:38] LABS: Bilirubin,Direct 4.8 mg/dL (0.0-0.3); Sodium 125 mMol/L (136-145)
--- NOTE | 2024-06-27 00:40 | EVENTNT_ITS ---
Documentation for date of: 06/27/24 Event Note Event Note: CODE BLUE 00:05 Patient was noted to have 75 ml dark bloody vomitus. First episode since ED arrival. Orders placed immediately for octreotide and pantoprazole IV push and infusion. 00:15 Received call that patient's BP was 60s/40s. Hospital floor team immediately came to bedside at ED 19 to assess patient. At that time patient was awake but becoming more lethargic. BP was unable to be read. On physical exam there was notable mottling forming across bilateral knees. 1L IV fluid bolus and albumin ordered. Patient moved to ED 1 room. 00:30 Decision was made to intubate due to deteriorating mentation. Dr. Ryan, Dr. Navarro, Dr. Hernandez, Dr. Kerr, Dr. Kelly, Dr. Davis, ED team at bedside. Right femoral central line placed by Dr. Kelly. 00:40 80 mg rocuronium given. During intubation attempt, patient had large- volume bloody emesis. Pulses were lost and CODE BLUE called. Called and spoke to Dr. gA regarding events, no endoscopy staff available overnight and also likely too unstable to undergo procedure, advised to continue resuscitation events. 00:43 1 mg epi given 00:44 No pulse, PEA 00:46 1 mg epi given 00:47 Intubation time, 7.0 tube, 24 cm at the teeth, positive color change and breath sounds 00:48 No pulse, PEA, 50 mEq sodium bicarb given, 1 mg calcium chloride 00:49 1 mg epi given 00:50 50 mEq sodium bicarb given 00:51 Pulses regained, sinus tachycardia 140s. BP 141/99 of patient present outside of ED 1 while code ongoing, updated on events. At this point in time he decided patient's code status to change to DNR. He did not want patient to go through additional suffering. Patient transferred to ICU 256.
[2024-06-27] MEDS: ROCURONIUM INJ 10 MG/ML VIAL 10 ML 80 MG IVP (00:41)
[2024-06-27] MEDS: EPINEPHrine in NS 4 MG IVPB 4 MG/250 ML BAG 15 MG IV (00:53)
--- NOTE | 2024-06-27 00:56 | XR_ITS ---
Examination: AP chest single view Technique one AP portable supine chest single view Exam date and time: June 27, 2024 0112 hours Comparison October 14, 2016 INDICATIONS: Hypoxic respiratory failure, postintubation, post orogastric tube placement FINDINGS: Significant bilateral pneumonia, especially right upper lobe and left base No significant cardiac enlargement Tracheal tube tip 6.9 cm above donte The orogastric tube is in the stomach, the tip is below the level of the film Cardiac leads satisfactory position Right axillary surgical clips Prominent osteopenia IMPRESSION: Significant bilateral pneumonia Endotracheal tube tip 6.9 cm above donte
[2024-06-27 01:15] LABS: Hematocrit 25.2 % (36.0-46.0)
[2024-06-27 01:16] LABS: Hemoglobin 8.5 g/dL (12.0-16.0)
[2024-06-27] MEDS: SODIUM CHLORIDE 0.9% 1000 ML 1,000 ML 999 ML IV (01:41)
[2024-06-27 01:50] LABS: Alanine Aminotransferase 1167 U/L (10-49); Albumin, Serum 1.8 gm/dL (3.4-4.8); Albumin/Globulin Ratio 1.1 (1.2-2.2); Alkaline Phosphatase 87 U/L (46-116); Anion Gap 25 (7-16); Aspartate Amino Transferase 1671 U/L (0-34); BUN/Creatinine Ratio 21 Ratio (12-20); Bilirubin,Total 3.7 mg/dL (0.3-1.2); Blood Urea Nitrogen 59 mg/dL (9-23); Calcium 9.4 mg/dL (8.3-10.6); Calcium (Corrected) 11.2 mg/dL (8.5-10.1); Carbon Dioxide 18.5 mMol/L (20.0-31.0); Chloride 90 mMol/L (98-107); Creatinine (Component) 2.8 mg/dL (0.6-1.3); Estimated Creatinine Clearance 19.9 mL/min (>60); Globulin 1.6 gm/dL (2.3-3.5); Glucose 99 mg/dL (74-106); Osmolality,Calculated 282 (275-295); Potassium 4.2 mMol/L (3.4-5.1); Sodium 133 mMol/L (136-145); Total Protein 3.4 gm/dL (5.7-8.2); eGFR 18 See Note
--- NOTE | 2024-06-27 01:53 | PC.RT ---
PEr Dr. Ryan and post CXR , ETT pulled back to 22CM@teeth/gum. Bilateral breath sounds ausciltated.
[2024-06-27 02:29] LABS: LDH (Lactate Dehydrogenase) 473 U/L (120-246)
[2024-06-27] MEDS: DEXTROSE 50%-WATER INJ 50 ML SYRINGE IV (02:38)
[2024-06-27 03:02] LABS: Base Excess -22 (-3-3); HCO3 11 mEq/L (20-26); Inspired Oxygen, FIO2 100 %; O2 Saturation 97 % (91-98); PCO2 55 mmHg (32.0-48.0); PO2 139 mmHg (83-108)
--- NOTE | 2024-06-27 03:13 | ESOP_ITS ---
Procedures Procedure Date / Time 06/27/24312 Procedure Narrative Procedure Narrative: Right Femoral Arterial Line Procedure Note Indication: Hemodynamic Instability Procedure stone processing machine operator: Adonis Davis MD Attending Physician: Pablito Ryan DO CONSENT: During the informed consent discussion regarding the procedure, or treatment, I explained the following to the designee: a.Nature of the procedure or treatment and who will perform the procedure or treatment. b.Necessity for the procedure and the possible benefits. c. Risks and complications (most common and serious). d.Alternative treatments and the risks, benefits and side effects of each (including no treatment). e. Likelihood of the patient achieving his/her goals without this procedure and surgery treatment. f. Problems that might occur during the recuperation. g. Conflicts of interest, if any PROCEDURE SUMMARY: A time out was performed. My hands were washed immediately prior to the procedure. I wore a surgical cap, mask with protective eyewear, sterile gown and sterile gloves throughout the procedure. After an ultrasound was performed and femoral artery visualized, the Right groin was prepped using chlorhexidine scrub and draped in sterile fashion using a three quarter sheet drape and sterile towels. The femoral pulse was identified and the leg was positioned in the usual fashion. Anesthesia was achieved using 1% lidocaine. Using the Arterial Line Kit, a needle was inserted into the femoral artery. Arterial blood was seen to pulsate in the flash chamber. The internal guidewire was advanced easily into the radial artery. The catheter was then advanced over the wire and the needle and wire were withdrawn. The catheter was sutured in place. A sterile opsite was placed over the catheter at the in sertion site. The patient tolerated the procedure without any hemodynamic compromise. At the time of procedure completion, the catheter was connected to the bus driver/monitor and calibrated. Appropriate waveform and blood pressure tracing was observed. Estimated blood loss is 5cc. Attending Physician Dr. Ryan supervised and was present for the entire procedure Adonis Davis MD PGY 1
[2024-06-27 03:19] LABS: pH, Arterial 6.89 (7.35-7.45)
[2024-06-27 03:20] LABS: Allen Test Not Performed; Puncture Site Arterial Line
--- NOTE | 2024-06-27 03:22 | XR_ITS ---
Examination: AP chest single view Technique one AP portable supine chest single view Exam date and time: June 27, 2024 0330 hours Comparison December 25, 2024 0112 hours INDICATIONS: Post temporary dialysis catheter insertion FINDINGS: Right internal jugular temporary dialysis catheter tip SVC satisfactory position Extensive bilateral lung opacity, edema and/or pneumonia Orogastric tube satisfactory position Tracheal tube tip 5.7 cm above donte Right axillary surgical clips IMPRESSION: Interval right internal jugular temporary dialysis catheter, tip SVC satisfactory position, no pneumothorax
[2024-06-27] MEDS: Sodium Bicarb Inj 8.4% SYR 50 ML SYRINGE IV ×3 (03:24)
[2024-06-27] MEDS: Magnesium Sulfate 2 GM Ivpb 2 GM/50 ML BAG IV (03:30)
[2024-06-27] MEDS: AMIODARONE 150 MG IVPB 150 MG/100 ML BAG 600 MG IV (03:30)
[2024-06-27] MEDS: Norepinephrine/D5W 8mg/250ml 8 MG/250 ML BAG 7.5 MG IV (03:30)
--- NOTE | 2024-06-27 03:30 | ESOP_ITS ---
Procedures Procedure Date / Time 06/27/24 0330 Central Line Placement Right IJ: Indication(s): shock and poor, or inadequate peripheral venous access Informed consent obtained: implied and procedure done urgently Time out done, and the following verified: correct patient, side and site, procedure, patient position and implants and/or equipment Patient placed on monitor/pulse ox: Yes Hand Hygiene: scrub, soap & water and alcohol-based hand rub Max Sterile Barrier Techniques used: cap, mask, sterile gown, sterile gloves and sterile full body drape Central line prep: Povidone-Iodine 1%, Chlorhexidine scrub and sterile drapes applied Ultrasound used for placement: Yes Sterile Technique if Ultrasound used, including sterile gel: yes Central line lumen inserted: triple Post procedure: sutured in place, good blood return, all ports aspirated, flushed, capped and sterile dressing applied Post procedure x-ray: tip of catheter in good position and no pneumothorax seen Patient tolerated procedure: well and no complications EBL(ml): 5 Complications: none Procedure comment: Indication: Hypotension/Need for Pressors Vascular Access Central Line Location: Right Internal Jugular Vein Procedure Lap Machine Operator: Chandler Kelly Attending Physician: Connor Kenney Present During Procedure?: Yes Consent:The procedure was performed emergently and the permission was implied because of the emergent nature. PROCEDURE SUMMARY: A time out was performed. My hands were washed immediately prior to the procedure. I wore a surgical cap, mask with protective eyewear, full gown and sterile gloves throughout the procedure. The patient was placed in Trendelenburg position. The Left neck was prepped using chlorhexidine scrub and draped in sterile fashion using a three quarter sheet drape and sterile towels. Skin preparation was allowed to dry prior to skin puncture. Anatomic landmarks were identified. Anesthesia was achieved over the vein using 1% lidocaine. Using real-time ultrasound, with sterile probe cover and sterile gel, the introducer needle was inserted into the vein under direct ultrasound visualization. Venous blood was withdrawn. The syringe was removed and a guidewire was advanced into t he introducer needle. The guidewire was visualized in the appropriate vein by ultrasound. A small incision was made at the skin surface with a scalpel and the introducer needle was exchanged for a dilator over the guidewire. After appropriate dilation was obtained, the dilator was exchanged over the wire for an [antimicrobial coated] central venous catheter. The wire was removed and the catheter was sutured in place. A biopatch was placed at the insertion site. A sterile op-site was placed over the catheter and biopatch. The patient tolerated the procedure without any hemodynamic compromise. At time of procedure completion, all ports aspirated and flushed properly. Post-procedure chest x-ray : Shows adequate positioning of the catheter for use. Patient plan of care was discussed with the attending physician, Dr. Connor Kelly, PGY1
[2024-06-27] MEDS: MORPHINE SULF INJ 10 MG/ML VIAL 4 MG IVP (03:58)
[2024-06-27 04:16] LABS: Basophils # (Auto) 0.1 Thou/mm3 (0.0-0.2); Basophils % (Auto) 2 % (0-2.5); Eosinophils % (Auto) 0 % (0-10); Hematocrit 32.2 % (36.0-46.0); Immature Granulocytes % (Auto) 53 % (0-0); Immature Granulocytes Auto 2.54 Thou/mm3 (0.00-0.00); Lymphocytes # (Auto) 0.9 Thou/mm3 (1.0-4.8); Lymphocytes % (Auto) 19 % (10-50); Mean Corpuscular HGB Conc 34.2 g/dl (31.0-37.0); Mean Corpuscular Hemoglobin 34.1 pg (25.0-35.0); Mean Corpuscular Volume 100 fL (80-100); Monocytes # (Auto) 0.3 Thou/mm3 (0.0-0.8); Monocytes % (Auto) 6 % (0-12); Neutrophils % (Auto) 20 % (37-80); Nucleated Red Blood Cell # 0.04 Thou/mm3 (0.00-0.00); Nucleated Red Blood Cell % 1 /100 WBC (0); RDW Standard Deviation 50.9 fL (36.4-46.3); Red Blood Count 3.23 Miln/mm3 (4.00-5.20); White Blood Count 4.8 Thou/mm3 (3.6-11.0)
[2024-06-27 04:21] LABS: Platelet Count 28 Thou/mm3 (140-440); Slide Review Platelets confirmed
--- NOTE | 2024-06-27 04:26 | DES_ITS ---
Documentation for date of: 06/27/24 Pronouncement Note Date and Time of Date of : 06/27/24 Time of : 04:18 PCOD Preliminary cause of : Hemorrhagic shock Summary Additional details: Patient was transitioned to comfort care by following further decline in the patient's condition to include ventricular tachycardia. Patient was administered Morphine 4 mg x 1 and was subsequently terminally extubated at 04:08 AM. Shortly thereafter, was called to see patient for unresponsiveness. On exam the patient was unresponsive, no spontaneous movement observed, patient did not respond to verbal or noxious stimuli. Absent heart and breath sounds for more than 2 minute. Pupils were fixed and dilated, corneal reflex was absent. Patient pronounced at 04:18 AM on 06/27/2024. Patient's was present at bedside at the time of patient's . My supervising attending Dr. Pablito Ryan DO notified. Additional Data Confirmation of : no pulse, no respirations, no heart sounds and pupils fixed and dilated Family: at bedside Attending/PCP notified?: Yes Attending physician: Pablito Ryan DO Was code activated?: No Autopsy requested?: No credit union field examiner notified?: Yes Organ bank notified?: Yes
--- NOTE | 2024-06-27 04:30 | PC.NURSE ---
PT , PRONOUNCED AT 0418. PT'S PRESENT. HAD BEEN MADE COMFORT CARE AND EXTUBATED AT 0408. PT FROM ER TO ICU AT 0126. MULTIPLE MD'S WORKED ON PT (IN ICU) TO PLACE AN ART LINE AND CENTRAL LINE. DR MCMILLAN AND DR. MERINO WITH PT MULTIPLE TIMES FROM THE TIME PT ARRIVED FROM ER.
--- NOTE | 2024-06-27 04:46 | EVENTNT_ITS ---
Documentation for date of: 06/27/24 Event Note Event Note: Ms. 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 Per the patient's who provided history, the patient had been having symptoms of symptoms of diffuse myalgias with concomitant symptoms of lethargy and fatigue which he initially attributed to flu. He noted she had 3-4 episodes per day of bilious vomit which contained mostly previously consumed food material. She had consumed 5-6 doses of tylenol per day in the last 4 days due to concern for possible flu. denies any recent travel, fever, abdominal pain, abdominal distention, lower extremity swelling, chest pain, shortness of breath, diarrhea. On the day of admission, noted that patient began to have new onset slurred speech. He then contact his 's PCP who recommended to seek care at the ED. ED Course: -Initial vitals were blood pressure 133/78 mmHg, pulse rate 78 bpm, respiratory rate 19/min, temperature 98.9 ?F, SpO2 98% with oxygen through nasal cannula. -Labs significant for WBC 9, hemoglobin 13.5, platelets 41, INR 1.7, PT 17.6, sodium 118, potassium 3.2, chloride 81, bicarb 18.4, anion gap 19, BUN 64, creatinine 3, total bilirubin 6.7, AST 4641, ALT 2556, ALP 129, procalcitonin 91.95. Acetaminophen levels are 24.8 -Head CT is negative for acute hemorrhage, mass effect or midline shift. Suspicious for acute nonhemorrhagic infarct in the left cerebellar hemisphere. Abdomen/pelvis CT showed significant left base pneumonia, pericardial effusion, diffuse fatty liver, hyperdense gallbladder, moderate bilateral renal parenchymal scar formation. chest CT showed fluid distended esophagus, pericardial effusion, significant left base pneumonia. -In the ED, patient was given 3 L of NS -Patient was admitted for treatment and management of acute liver failure and acute kidney injury and hyponatremia, pneumonia, pericardial effusion. Whilst waiting for admission in the ED, the patient again began to demonstrate nausea and vomiting and became hypotensive. The decision was made to emergently intubate the patient due to concern for airway protection. Upon intubation, the patient demonstrated gross hematemesis which complicated the intubation. Patient pulse was then lost and a CODE BLUE was initiated. Please see CODE BLUE note for specific details. Patient was coded with 3 rounds of epinephrine at which point ROSC was obtained. Informed the patient's of the patient's critical status during the CODE BLUE who at which point changed her CODE STATUS to DNR/DNI. Patient was then taken to the ICU for continued management. A right femoral arterial line and a right internal jugular venous catheter was placed for access. Patient was then started on pressor support to maintain blood pressure. Shortly after the lines were placed, the patient went into sustained ventricular tachycardia and her blood pressure began to drop. A post code ABG showed the patient to be extremely acidotic with a pH of 6.89. Given these results, a goals of care discussion was had with the patient's who at which time decided to make the patient comfort care measures only. The patient was transition to comfort care status, and was terminally extubated at 4:08 AM. The patient unfortunately shortly thereafter at 4:18 AM on 06/27/2024. Patient's case was discussed with supervising attending physician Dr. Connor Navarro M.D. Internal Medicine PGY-3
[2024-06-27 04:54] LABS: INR 1.7 (0.9-1.3); Partial Thromboplastin Time 54.1 Seconds (22.0-36.0); Prothrombin Time 17.5 Seconds (9.0-12.2)
[2024-06-27 04:58] LABS: Alanine Aminotransferase 1044 U/L (10-49); Albumin, Serum 2.7 gm/dL (3.4-4.8); Albumin/Globulin Ratio 1.6 (1.2-2.2); Alkaline Phosphatase 139 U/L (46-116); Anion Gap 27 (7-16); BUN/Creatinine Ratio 23 Ratio (12-20); Bilirubin,Total 4.3 mg/dL (0.3-1.2); Blood Urea Nitrogen 63 mg/dL (9-23); Calcium 7.8 mg/dL (8.3-10.6); Calcium (Corrected) 8.8 mg/dL (8.5-10.1); Chloride 92 mMol/L (98-107); Creatinine (Component) 2.8 mg/dL (0.6-1.3); Estimated Creatinine Clearance 19.9 mL/min (>60); Globulin 1.7 gm/dL (2.3-3.5); Glucose 167 mg/dL (74-106); Magnesium 3.6 mg/dL (1.6-2.6); Osmolality,Calculated 293 (275-295); Sodium 136 mMol/L (136-145); Total Protein 4.4 gm/dL (5.7-8.2); eGFR 18 See Note
[2024-06-27 05:12] LABS: Aspartate Amino Transferase 1764 U/L (0-34)
[2024-06-27 05:15] LABS: Potassium 2.5 mMol/L (3.4-5.1)
[2024-07-04 06:47] LABS: ANA Pattern NUCLEAR, CENTROMERE; ANA Screen, IFA POSITIVE (NEGATIVE); ANA Titer >=1:1280 titer; Alpha-1-Antitrypsin* 224 mg/dL (83-199); Ceruloplasmin* 20 mg/dL (14-48); Hepatitis A Antibody, Total* NONREACTIVE; Sm Antibody* <1.0 NEG AI (<1.0 NEGATIVE)
== END 2024-06-27 04:18 | disposition expired | DRG 441 ==
LOC: SERX 22:27 → SERHOLD 06-27 01:21 → S2SX 06-27 01:27
PROVIDERS: Student in an Organized Health Care Education/Training Program; Admitting Provider Student in an Organized Health Care Education/Training Program; Emergency Provider Emergency Medicine; Visit Provider Student in an Organized Health Care Education/Training Program
DX: K72.00 Acute and subacute hepatic failure without coma (principal); G93.41 Metabolic encephalopathy; J18.9 Pneumonia, unspecified organism; N17.9 Acute kidney failure, unspecified; D68.9 Coagulation defect, unspecified; E87.1 Hypo-osmolality and hyponatremia; E87.20 Acidosis, unspecified; I31.39 Other pericardial effusion (noninflammatory); I50.22 Chronic systolic (congestive) heart failure; I47.20 Ventricular tachycardia, unspecified; K92.0 Hematemesis; D69.6 Thrombocytopenia, unspecified; E03.9 Hypothyroidism, unspecified; E83.42 Hypomagnesemia; E87.6 Hypokalemia; I10 Essential (primary) hypertension; F10.10 Alcohol abuse, uncomplicated; K70.10 Alcoholic hepatitis without ascites; K22.89 Other specified disease of esophagus; K76.0 Fatty (change of) liver, not elsewhere classified; N28.89 Other specified disorders of kidney and ureter; I46.2 Cardiac arrest due to underlying cardiac condition; R57.8 Other shock; Z66 Do not resuscitate; T45.1X5D Adverse effect of antineoplastic and immunosuppressive drugs, subsequent encounter; Z95.810 Presence of automatic (implantable) cardiac defibrillator; Z92.21 Personal history of antineoplastic chemotherapy; Z92.3 Personal history of irradiation; Z88.2 Allergy status to sulfonamides; Z51.5 Encounter for palliative care; Z85.3 Personal history of malignant neoplasm of breast
CPT/HCPCS: 36415; 36430; 36600; 70450; 71045; 71250; 74176; 76700; 80053; 80069; 80074; 80307; 80329; 81001; 82103; 82140; 82248; 82390; 82728; 82803; 83540; 83550; 83605; 83615; 83690; 83735; 84145; 84295; 84443; 84484; 85014; 85018; 85025; 85610; 85730; 86038; 86235; 86703; 86705; 86706; 86708; 86709; 86803; 86850; 86900; 86901; 86920; 86923; 86927; 86965; 87040; 87077; 87081; 87086; 87186; 87340; 87811; 93005; 94002; 96365; 96366; 96367; 96375; 99291; J0171; J0283; J2270; J2405; J2543; J2919; J3411; J3475; J3490; J7030; J7040; J7050; P9016; P9047; P9060; A9270; G0480